=== PATIENT | female | born 1950 | race Caucasian/White ===

== ENCOUNTER 2018-08-05 20:27 | Inpatient (IN) | payer BC ==
[~2018-08-05 20:27] MED LIST: ENOXAPARIN 100 MG/ML SYR SQ SCH
[2018-08-05] MEDS ORDERED: METOPROLOL TARTRATE 5 MG/5 ML INJ IV ONE ×2 (21:47→22:52)
[2018-08-05] MEDS ORDERED: ENOXAPARIN 80 MG/0.8 ML SQ ONE (21:47)
[2018-08-05] MEDS ORDERED: MIDAZOLAM HCL 2 MG/2 ML INJ ONE (22:10)
[2018-08-05] MEDS ORDERED: FENTANYL CITR 100 MCG/2 ML ONE (22:10)
[2018-08-05] MEDS ORDERED: ETOMIDATE 20 MG/10 ML VIAL IV ONE (22:10)
[2018-08-05 22:15] LABS: Absolute Lymphocytes (CBC) 1.8 K/uL (0.7-4.9); Absolute Monocytes 0.8 K/uL (0.1-1.3); Absolute Neutrophil 7.5 K/uL (1.8-8.0); Basophils % 0.7 % (0-1.3); Hematocrit 44.5 % (36.0-45.0); Lymphocytes % 17.5 % (15.3-44.8); MPV 10.1 fL (7.6-11.3); Monocytes % 8.2 % (3.3-12.3); RBC Red Blood Cell Count 4.95 M/uL (3.86-4.86)
[2018-08-05 22:20] LABS: Protime INR 1.03
[2018-08-05] MEDS ORDERED: NA CHLORIDE 0.9% 500 ML ONE (22:22)
[2018-08-05] MEDS ORDERED: ONDANSETRON 4 MG/2 ML VIAL ONE (22:33)
[2018-08-05 22:37] LABS: ALT/SGPT 26 U/L (12-78); AST/SGOT 21 U/L (15-37); Albumin 3.6 g/dL (3.4-5.0); Alkaline Phosphatase 94 U/L (45-117); BUN Blood Urea Nitrogen 10 mg/dL (7-18); Bicarbonate 24 mmol/L (21-32); Bilirubin Direct 0.1 mg/dL (0-0.2); Bilirubin Total 0.5 mg/dL (0.2-1.0); Glucose Level 105 mg/dL (74-106); Magnesium 2.3 mg/dL (1.8-2.4); NT PRO-BNP 1293 pg/mL (<125); Potassium 4.1 mmol/L (3.5-5.1); Protein, Total 7.6 g/dL (6.4-8.2); Sodium Level 139 mmol/L (136-145); Troponin (Emerg Dept Use Only) < 0.02 ng/mL (0.0-0.045)
--- NOTE | 2018-08-05 22:49 | EDPHYS ---
Physician Documentation [facility] Name: Marlen Zheng Age: 68 yrs Sex: Female : 1950 Arrival Date: 08/05/2018 Time: 20:29 Bed 2 Private MD: Thor Dennis T ED Physician Buddy Schmitz HPI: 08/05 22:05 This 68 yrs old Female presents to ER via Ambulatory with complaints of jr8 Dizziness, Nausea. 22:05 The patient presents with dizziness, feeling faint, lightheadedness. Onset: The jr8 symptoms/episode began/occurred acutely, today. Context: occurred at home, occurred while the patient was at rest. Modifying factors: The symptoms are alleviated by nothing, the symptoms are aggravated by standing up. Associated signs and symptoms: Pertinent positives: shortness of breath. Severity of symptoms: At their worst the symptoms were moderate in the emergency department the symptoms are unchanged. Patient's baseline: Neuro: alert and fully oriented, Motor: no deficits, Ambulation: walks without assistance, Speech: normal. The patient has not experienced similar symptoms in the past. The patient has not recently seen a physician. Historical: - Allergies: 20:35 No Known Allergies; aj - Home Meds: 20:35 None [Active]; aj - PMHx: 20:35 Vertigo; aj - PSHx: 20:35 None; aj - Immunization history:: Adult Immunizations up to date. - Social history:: Smoking status: Patient/guardian denies using tobacco. - Ebola Screening: : Patient negative for fever greater than or equal to 101.5 degrees Fahrenheit, and additional compatible Ebola Virus Disease symptoms Patient denies exposure to infectious person Patient denies travel to an Ebola-affected area in the 21 days before illness onset No symptoms or risks identified at this time. ROS: 22:05 Eyes: Negative for injury, pain, redness, and discharge, ENT: Negative for injury, jr8 pain, and discharge, Neck: Negative for injury, pain, and swelling, Cardiovascular: Negative for chest pain, palpitations, and edema, Abdomen/GI: Negative for abdominal pain, nausea, vomiting, diarrhea, and constipation, Back: Negative for injury and pain, MS/Extremity: Negative for injury and deformity, Skin: Negative for injury, rash, and discoloration. 22:05 Respiratory: Positive for shortness of breath. 22:05 Neuro: Positive for dizziness, Negative for altered mental status, gait disturbance, headache, hearing loss, loss of consciousness, numbness, seizure activity, speech changes, syncope, near syncope, tingling, tinnitus, tremor, visual changes, weakness. Exam: 22:05 Eyes: Pupils equal round and reactive to light, extra-ocular motions intact. Lids and jr8 lashes normal. Conjunctiva and sclera are non-icteric and not injected. Cornea within normal limits. Periorbital areas with no swelling, redness, or edema. ENT: Nares patent. No nasal discharge, no septal abnormalities noted. Tympanic membranes are normal and external auditory canals are clear. Oropharynx with no redness, swelling, or masses, exudates, or evidence of obstruction, uvula midline. Mucous membranes moist. Neck: Trachea midline, no thyromegaly or masses palpated, and no cervical lymphadenopathy. Supple, full range of motion without nuchal rigidity, or vertebral point tenderness. No Meningismus. Respiratory: Lungs have equal breath sounds bilaterally, clear to auscultation and percussion. No rales, rhonchi or wheezes noted. No increased work of breathing, no retractions or nasal flaring. Abdomen/GI: Soft, non-tender, with normal bowel sounds. No distension or tympany. No guarding or rebound. No evidence of tenderness throughout. Back: No spinal tenderness. No costovertebral tenderness. Full range of motion. Skin: Warm, dry with normal turgor. Normal color with no rashes, no lesions, and no evidence of cellulitis. MS/ Extremity: Pulses equal, no cyanosis. Neurovascular intact. Full, normal range of motion. Neuro: Awake and alert, GCS 15, oriented to person, place, time, and situation. Cranial nerves II-XII grossly intact. Motor strength 5/5 in all extremities. Sensory grossly intact. Cerebellar exam normal. Normal gait. 22:05 Cardiovascular: Rate: tachycardic, Rhythm: irregularly irregular, Pulses: Pulses are 2+ in right radial artery and left radial artery. Heart sounds: normal, normal S1and S2, no S3 or S4, no murmur, no rub, no gallop, Edema: is not appreciated, JVD: is not appreciated. Vital Signs: 20:35 BP 185 / 94; Pulse 68; Resp 20; Temp 98.1; Pulse Ox 98% on R/A; Weight 83.46 kg; Height aj 5 ft. 4 in. (162.56 cm); 21:40 BP 157 / 107; Pulse 134; Resp 18; Pulse Ox 98% on R/A; tl2 22:15 BP 146 / 97; Pulse 128; Resp 18; Pulse Ox 96% on R/A; tl2 22:27 Pulse 67; Resp 18; Pulse Ox 100% on Non-rebreather mask; tl2 22:30 BP 109 / 78; Pulse 134; Resp 18; Pulse Ox 100% on Non-rebreather mask; tl2 22:33 BP 124 / 80; Pulse 136; Resp 18; Pulse Ox 98% on 3 lpm NC; tl2 23:02 BP 110 / 76; Pulse 114; Resp 18; Pulse Ox 98% on 3 lpm NC; tl2 23:30 BP 118 / 78; Pulse 120; Resp 18; Pulse Ox 97% on 3 lpm NC; tl2 08/06 00:04 BP 110 / 74; Pulse 118; Resp 15; Pulse Ox 96% on 2 lpm NC; tl2 00:31 BP 125 / 70; Pulse 114; Resp 18; Pulse Ox 98% on 2 lpm NC; tl2 08/05 20:35 Body Mass Index 31.58 (83.46 kg, 162.56 cm) aj Procedures: 08/05 22:45 Cardioversion: (synchronized) using pacer pads, for treatment of A fib, with 200 joules jr8 X 2. Post procedure rhythm is sinus rhythm, the patient tolerated the procedure well, . Moderate sedation: Pre-procedure assessment: the patient has been NPO 5 hour(s) prior to arrival, ASA physical classification: I - healthy, no underlying organic disease, Monitoring during procedure: compliance monitor, continuous pulse oximetry, nurse at bedside at all times, Medications employed: Fentanyl, 75 mcg(s), Versed, 2 mg(s), Post-procedure assessment: the patient is deeply sedated, Agee sedation score: 6 - no response, Respiratory status: requires supplemental oxygen to maintain acceptable oxygen saturation, a reversal agent was not used. MDM: 21:21 Patient medically screened. jr8 22:07 ED course: Patient stated that symptoms started acutely today with dizziness. Denies jr8 having problems yesterday or day before that. Explained to her that we only have a 48 hour window to electrically cardiovert. Otherwise we need to wait and anticoagulate and rate control if she felt that the symptoms started greater then 48 hours ago due to increased stroke risk from dislodging clot. Patient sure that it started today. Is ok with cardioversion and signed consents understanding risks vs. benefits . 22:45 Data reviewed: vital signs, nurses notes, lab test result(s), EKG, radiologic studies, [facility] plain films. Data interpreted: Pulse oximetry: on room air is 98 %. Interpretation: normal. Counseling: I had a detailed discussion with the patient and/or guardian regarding: the historical points, exam findings, and any diagnostic results supporting the discharge/admit diagnosis, lab results, radiology results, the need for further work-up and treatment in the hospital. ED course: Patient successfully cardioverted for a few minutes but went back into atrial fibrillation. Will rate control and admit at this point for cardiology evaluation . 08/05 21:21 Order name: Basic Metabolic Panel [facility] 08/05 21:21 Order name: CBC with Diff [facility] 08/05 21:21 Order name: LFT's [facility] 08/05 21:21 Order name: Magnesium [facility] 08/05 21:21 Order name: NT PRO-BNP [facility] 08/05 21:21 Order name: PT-INR [facility] 08/05 21:21 Order name: Troponin (emerg Dept Use Only) [facility] 08/05 22:18 Order name: CBC with Automated Diff; Complete Time: 22:40 EDMS 08/05 22:23 Order name: Protime (+INR); Complete Time: 22:40 EDMS 08/05 22:38 Order name: Basic Metabolic Panel; Complete Time: 23:09 EDMS 08/05 22:38 Order name: Liver (Hepatic) Function; Complete Time: 23:09 EDMS 08/05 22:38 Order name: Troponin (Emerg Dept Use Only); Complete Time: 23:09 EDMS 08/05 22:38 Order name: NT PRO-BNP; Complete Time: 23:09 EDMS 08/05 22:38 Order name: Magnesium; Complete Time: 23:09 EDMS 08/05 21:21 Order name: XRAY Chest (1 view) [facility] 08/05 21:21 Order name: EKG; Complete Time: 21:28 [facility] 08/05 21:21 Order name: Cardiac monitoring; Complete Time: 21:24 08/05 21:21 Order name: EKG - Nurse/Tech; Complete Time: :08/05 22:40 Order name: TS 08/05 22:40 Order name: TSH [facility] 08/05 22:40 Order name: T4 Free [facility] 08/05 23:05 Order name: T4 Free; Complete Time: 23: EDFL 08/05 23:05 Order name: Thyroid Stimulating Hormone; Complete Time: 23: EDFL 08/05 21:21 Order name: IV Saline Lock; Complete Time: : [facility] 08/05 21:21 Order name: Labs collected and sent; Complete Time: : [facility] 08/05 21:21 Order name: O2 Per Protocol; Complete Time: : [facility] 08/05 21:21 Order name: O2 Sat Monitoring; Complete Time: : [facility] 08/05 21:31 Order name: Conscious Sedation; Complete Time: 22:43 [facility] Administered Medications: 21:42 Drug: Lovenox 1 mg/kg Route: Sub-Q; Site: left lower abdomen; ea 22:00 Follow up: Response: No adverse reaction tl2 21:52 Drug: Metoprolol 5 mg Route: IVP; Site: right antecubital; tl2 08/06 00:59 Follow up: Response: No adverse reaction; No adverse reaction, rate decreased tl2 08/05 22:22 Drug: NS 0.9% 500 ml Route: IV; Rate: bolus; Site: right antecubital; tl2 23:00 Follow up: IV Status: Completed infusion; IV Intake: 500ml tl2 22:23 Drug: Zofran 4 mg Route: IVP; Site: right antecubital; tl2 22:30 Follow up: Response: No adverse reaction tl2 22:24 Drug: fentaNYL (PF) 75 mcg Route: IVP; Site: right antecubital; tl2 22:30 Follow up: Response: No adverse reaction; Pain is decreased tl2 22:25 Drug: Versed 2 mg Route: IVP; Site: right antecubital; tl2 22:30 Follow up: Response: No adverse reaction; Patient is sedated tl2 23:00 Drug: Lopressor 5 mg {Note: BP 110/76 HR 137.} Route: IVP; Site: right antecubital; tl2 23:20 Follow up: Response: No adverse reaction tl2 Disposition: 08/05/18 22:48 Hospitalization ordered by Marlena Sterling for Inpatient Admission. Preliminary diagnosis is Atrial fibrillation and flutter - with RVR. - Bed requested for Telemetry/MedSurg (Inpatient). - Status is Inpatient Admission. tl2 - Condition is Stable. - Problem is new. - Symptoms are unchanged. UTI on Admission? No Signatures: Dispatcher [employer] EDMS Veronica Hearn RN Regi Higuera RN Uche Kuo PA PA jr8 Shelley Dukes RN ZOHRA tl2 Helen Eller RN ZOHRA portillo Corrections: (The following items were deleted from the chart) 23:33 22:48 Hospitalization Ordered by Marlena Sterling MD for Inpatient Admission. Preliminary diagnosis is Atrial fibrillation and flutter - with RVR. Bed requested for Telemetry/MedSurg (Inpatient). Status is Inpatient Admission. Condition is Stable. Problem is new. Symptoms are unchanged. UTI on Admission? No. jr8 08/06 01:01 08/05 23:33 08/05/2018 22:48 Hospitalization Ordered by Marlena Sterling MD for Inpatient tl2 Admission. Preliminary diagnosis is Atrial fibrillation and flutter - with RVR. Bed requested for Telemetry/MedSurg (Inpatient). Status is Inpatient Admission. Condition is Stable. Problem is new. Symptoms are unchanged. UTI on Admission? No. mw
--- NOTE | 2018-08-05 22:49 | ER ---
Nurse's Notes [facility] Name: Marlen Zheng Age: 68 yrs Sex: Female : 1950 Arrival Date: 08/05/2018 Time: 20:29 Bed 2 Private MD: Thor Dennis T Diagnosis: Atrial fibrillation and flutter-with RVR Presentation: 08/05 20:34 Presenting complaint: Patient states: Reports dizziness and nausea that started today. aj Worse with movement. Transition of care: patient was not received from another setting of care. Onset of symptoms was August 05, 2018. Risk Assessment: Do you want to hurt yourself or someone else? Patient reports no desire to harm self or others. Initial Sepsis Screen: Does the patient meet any 2 criteria? No. Patient's initial sepsis screen is negative. Does the patient have a suspected source of infection? No. Patient's initial sepsis screen is negative. Care prior to arrival: None. 20:34 Method Of Arrival: Ambulatory aj 20:34 Acuity: TRICIA 3 aj Triage Assessment: 20:35 General: Appears in no apparent distress. comfortable, Behavior is calm, cooperative, aj appropriate for age. Pain: Denies pain. Neuro: Level of Consciousness is awake, alert, obeys commands, Oriented to person, place, time, situation, Appropriate for age Reports dizziness. Respiratory: Airway is patent Respiratory effort is even, unlabored, Respiratory pattern is regular, symmetrical. GI: Reports nausea. Derm: Skin is intact, is healthy with good turgor, Skin is pink, warm \T\ dry. normal. Historical: - Allergies: 20:35 No Known Allergies; aj - Home Meds: 20:35 None [Active]; aj - PMHx: 20:35 Vertigo; aj - PSHx: 20:35 None; aj - Immunization history:: Adult Immunizations up to date. - Social history:: Smoking status: Patient/guardian denies using tobacco. - Ebola Screening: : Patient negative for fever greater than or equal to 101.5 degrees Fahrenheit, and additional compatible Ebola Virus Disease symptoms Patient denies exposure to infectious person Patient denies travel to an Ebola-affected area in the 21 days before illness onset No symptoms or risks identified at this time. Screenin:25 Abuse screen: Denies threats or abuse. Nutritional screening: No deficits noted. ea Tuberculosis screening: No symptoms or risk factors identified. Fall Risk IV access (20 points). Assessment: 21:15 General: Appears in no apparent distress. uncomfortable, Behavior is calm, cooperative, tl2 appropriate for age. Pain: Denies pain. Neuro: Level of Consciousness is awake, alert, obeys commands, Oriented to person, place, time, situation, Reports dizziness, lightheadedness . Cardiovascular: Denies chest pain, palpitations, shortness of breath. Respiratory: Airway is patent Respiratory effort is even, unlabored, Respiratory pattern is regular, symmetrical. GI: Reports nausea. Derm: Skin is pink, warm \T\ dry. 22:20 Reassessment: pt prepared for cardioversion, PA notified. tl2 22:30 Reassessment: Patient appears in no apparent distress at this time. Patient and/or tl2 family updated on plan of care and expected duration. Pain level reassessed. Patient is alert, oriented x 3, equal unlabored respirations, skin warm/dry/pink. 23:30 Reassessment: Patient appears in no apparent distress at this time. Patient and/or tl2 family updated on plan of care and expected duration. Pain level reassessed. Patient is alert, oriented x 3, equal unlabored respirations, skin warm/dry/pink. 08/06 00:30 Reassessment: Patient appears in no apparent distress at this time. Patient and/or tl2 family updated on plan of care and expected duration. Pain level reassessed. Patient is alert, oriented x 3, equal unlabored respirations, skin warm/dry/pink. pt stable and ready for transport to floor. Vital Signs: 08/05 20:35 BP 185 / 94; Pulse 68; Resp 20; Temp 98.1; Pulse Ox 98% on R/A; Weight 83.46 kg; Height aj 5 ft. 4 in. (162.56 cm); 21:40 BP 157 / 107; Pulse 134; Resp 18; Pulse Ox 98% on R/A; tl2 22:15 BP 146 / 97; Pulse 128; Resp 18; Pulse Ox 96% on R/A; tl2 22:27 Pulse 67; Resp 18; Pulse Ox 100% on Non-rebreather mask; tl2 22:30 BP 109 / 78; Pulse 134; Resp 18; Pulse Ox 100% on Non-rebreather mask; tl2 22:33 BP 124 / 80; Pulse 136; Resp 18; Pulse Ox 98% on 3 lpm NC; tl2 23:02 BP 110 / 76; Pulse 114; Resp 18; Pulse Ox 98% on 3 lpm NC; tl2 23:30 BP 118 / 78; Pulse 120; Resp 18; Pulse Ox 97% on 3 lpm NC; tl2 08/06 00:04 BP 110 / 74; Pulse 118; Resp 15; Pulse Ox 96% on 2 lpm NC; tl2 00:31 BP 125 / 70; Pulse 114; Resp 18; Pulse Ox 98% on 2 lpm NC; tl2 08/05 20:35 Body Mass Index 31.58 (83.46 kg, 162.56 cm) aj Vitals: 08/05 22:27 Cardiac Rhythm Assessment Sinus rhythm. tl2 ED Course: 20:29 Patient arrived in ED. am2 20:30 Thor Dennis MD is Private Physician. am2 20:35 Triage completed. aj 20:35 Arm band placed on left wrist. Patient placed in waiting room, Patient notified of wait aj time. 21:21 Uche Alvarenga PA is PHCP. jr8 21:21 Buddy Schmitz MD is Attending Physician. jr8 21:24 Inserted saline lock: 20 gauge in right antecubital area, using aseptic technique. ea Blood collected. 21:25 Patient has correct armband on for positive identification. Bed in low position. Call ea light in reach. Side rails up X 1. 22:47 Marlena Sterling MD is Hospitalizing Provider. jr8 23:00 Shelley Dukes RN is Primary Nurse. tl2 08/06 00:31 No provider procedures requiring assistance completed. Patient admitted, IV remains in tl2 place. Administered Medications: 08/05 21:42 Drug: Lovenox 1 mg/kg Route: Sub-Q; Site: left lower abdomen; ea 22:00 Follow up: Response: No adverse reaction tl2 21:52 Drug: Metoprolol 5 mg Route: IVP; Site: right antecubital; tl2 08/06 00:59 Follow up: Response: No adverse reaction; No adverse reaction, rate decreased tl2 08/05 22:22 Drug: NS 0.9% 500 ml Route: IV; Rate: bolus; Site: right antecubital; tl2 23:00 Follow up: IV Status: Completed infusion; IV Intake: 500ml tl2 22:23 Drug: Zofran 4 mg Route: IVP; Site: right antecubital; tl2 22:30 Follow up: Response: No adverse reaction tl2 22:24 Drug: fentaNYL (PF) 75 mcg Route: IVP; Site: right antecubital; tl2 22:30 Follow up: Response: No adverse reaction; Pain is decreased tl2 22:25 Drug: Versed 2 mg Route: IVP; Site: right antecubital; tl2 22:30 Follow up: Response: No adverse reaction; Patient is sedated tl2 23:00 Drug: Lopressor 5 mg {Note: BP 110/76 HR 137.} Route: IVP; Site: right antecubital; tl2 23:20 Follow up: Response: No adverse reaction tl2 Intake: 23:00 IV: 500ml; Total: 500ml. tl2 Outcome: 22:48 Decision to Hospitalize by Provider. jr8 08/06 00:31 Admitted to Tele accompanied by nurse, family with patient, via stretcher, room 416, tl2 with chart, Report called to ZOHRA Ramos Condition: stable Discharge instructions given to patient, family, Instructed on the need for admit. 01:01 Patient left the ED. tl2 Signatures: Regi Landry RN RN aj Roszak, Josh, PA PA jr8 Shelley Dukes RN RN tl2 Regi Sotomayor Elena, RN RN ea
[2018-08-05] MEDS ORDERED: ALPRAZOLAM 0.25 MG TABLET PO PRN (23:26)
[2018-08-05] MEDS ORDERED: MORPHINE 4 MG/ML SYR IV PRN (23:26)
[2018-08-06] MEDS ORDERED: ENOXAPARIN 80 MG/0.8 ML SQ SCH (01:00)
[2018-08-06] MEDS: ONDANSETRON 4 MG/2 ML VIAL IV PRN ×2 (01:03→07:28)
[2018-08-06 04:32] LABS: Urine Appearance CLEAR; Urine Bilirubin NEGATIVE (NEG); Urine Blood NEGATIVE (NEG); Urine Color YELLOW; Urine Glucose NEGATIVE (NEG); Urine Protein NEGATIVE (NEG); Urine Specific Gravity 1.015 (1.005-1.030); Urine Urobilinogen 0.2 mg/dL (0.2-1.0); Urine pH 6.5 (5.0-7.0)
[2018-08-06 04:36] LABS: Urine Microscopic Reflex ORDER UMIC
[2018-08-06 04:41] LABS: Absolute Lymphocytes (CBC) 2.2 K/uL (0.7-4.9); Absolute Monocytes 0.7 K/uL (0.1-1.3); Basophils % 0.9 % (0-1.3); Eosinophils % 1.5 % (0-4.4); Hematocrit 42.9 % (36.0-45.0); Lymphocytes % 24.2 % (15.3-44.8); Monocytes % 7.7 % (3.3-12.3); RBC Red Blood Cell Count 4.67 M/uL (3.86-4.86)
[2018-08-06 05:00] LABS: ALT/SGPT 24 U/L (12-78); AST/SGOT 15 U/L (15-37); Albumin 3.1 g/dL (3.4-5.0); Alkaline Phosphatase 81 U/L (45-117); BUN Blood Urea Nitrogen 11 mg/dL (7-18); Bicarbonate 28 mmol/L (21-32); Bilirubin Total 0.6 mg/dL (0.2-1.0); Glucose Level 94 mg/dL (74-106); HDL Cholesterol 55 mg/dL (40-60); LDL Cholesterol, Calculated 111 (<130); Magnesium 2.2 mg/dL (1.8-2.4); NT PRO-BNP 1299 pg/mL (<125); Phosphorus 3.3 mg/dL (2.5-4.9); Potassium 4.7 mmol/L (3.5-5.1); Protein, Total 6.6 g/dL (6.4-8.2); Sodium Level 142 mmol/L (136-145); Troponin I < 0.02 ng/mL (0.0-0.045)
[2018-08-06 05:08] LABS: Urine Bacteria <20 /HPF (<20); Urine Culture Reflex Order REFLEXED; Urine RBC <5 /HPF (NONE SEEN)
[2018-08-06] MEDS: ACETAMINOPHEN 500 MG TAB PO PRN ×2 (07:29→20:00)
--- NOTE | 2018-08-06 07:51 | P.HP ---
Certification for Inpatient Patient admitted to: Inpatient With expected LOS: >2 Midnights Patient will require the following post-hospital care: None Practitioner: I am a practitioner with admitting privileges, knowledge of patient current condition, hospital course, and medical plan of care. Services: Services provided to patient in accordance with Admission requirements found in Title 42 Section 412.3 of the Code of Federal Regulations Patient History Date of Service: 08/06/18 Reason for admission: Atrial fibrillation with rapid ventricular response History of Present Illness: Patient is a 68-year-old female came to the hospital with atrial fibrillation with rapid ventricular response. Patient was having dizziness and nausea and vomiting at home. She also felt lightheaded. The symptoms have been going on for the last couple weeks but were much more severe today. In the ER she was told she had atrial fibrillation. She was given IV Lopressor and her symptoms were improving. However, she remains in atrial fibrillation. Will continue with anti coagulation as well. Cardiology consultation and echocardiogram. Will also check thyroid studies as well. Allergies No Known Allergies Allergy (Verified 08/05/18 23:44) Home Medications: NK [No Home Meds] 08/06/18 - Past Medical/Surgical History Has patient received pneumonia vaccine in the past: No Diabetic: No -: veritgo Past Surgical History: Patient denies surgical history - Family History Father Family History: Reviewed- Non-Contributory - Social History Smoking Status: Never smoker Alcohol use: No Place of Residence: Home Review of Systems 10-point ROS is otherwise unremarkable Physical Examination - Vital Signs Temperature: 97.9 F Blood Pressure: 110/70 Pulse: 101 Respirations: 18 Pulse Ox (%): 97 - Physical Exam General: Alert, In no apparent distress, Oriented x3 HEENT: Atraumatic, PERRLA, Mucous membr. moist/pink, EOMI, Sclerae nonicteric Neck: Supple, 2+ carotid pulse no bruit, No LAD, Without JVD or thyroid abnormality Respiratory: Clear to auscultation bilaterally, Normal air movement Cardiovascular: Normal S1 S2, No murmurs, Irregular heart rate/rhythm Gastrointestinal: Normal bowel sounds, Soft and benign, Non-distended, No tenderness Musculoskeletal: No clubbing, No swelling, No tenderness Integumentary: No rashes Neurological: Normal gait, Normal speech, Normal strength at 5/5 x4 extr, Normal tone, Sensation intact, Cranial nerves 3-12 intact, Normal affect Lymphatics: No axilla or inguinal lymphadenopathy - Studies Laboratory Data (last 24 hrs) 08/05/18 22:00: PT 12.1, INR 1.03 08/05/18 22:00: WBC 10.4, Hgb 14.9, Hct 44.5, Plt Count 312 08/05/18 22:00: Sodium 139, Potassium 4.1, BUN 10, Creatinine 0.69, Glucose 105 , Magnesium 2.3, Total Bilirubin 0.5, AST 21, ALT 26, Alkaline Phosphatase 94 Assessment & Plan - Problems (Diagnosis) (1) Atrial fibrillation with rapid ventricular response Current Visit: Yes Status: Acute (2) Near syncope Current Visit: Yes Status: Acute - Plan 1. Serial troponins and EKG 2. Cardiology consultation 3. Echocardiogram 4. Beta-peri and anti coagulation 5. Check electrolytes and thyroid studies 6. GI and DVT prophylaxis Discharge Plan: Home Plan to discharge in: Greater than 2 days - Advance Directives Does patient have a Living Will: No Does patient have a Durable POA for Healthcare: No - Code Status/Comfort Care Code Status Assessed: Yes Code Status: Full Code Critical Care: No Time Spent Managing PTS Care (In Minutes): 45
--- NOTE | 2018-08-06 08:20 | RAD REPORT ---
EXAM DESCRIPTION: Luann Single View08/05/2018 10:03 pm CLINICAL HISTORY: Shortness breath COMPARISON: none FINDINGS: Artifact overlies the right chest. The lungs appear clear of acute infiltrate. The heart is normal size IMPRESSION: No acute abnormalities displayed
[2018-08-06] MEDS ORDERED: METOPROLOL TAR 50 MG TAB PO SCH (09:00)
[2018-08-06] MEDS: ENOXAPARIN 80 MG/0.8 ML SQ SCH ×2 (09:23→20:00)
[2018-08-06] MEDS ORDERED: SOTALOL HCL 80 MG TAB PO ONE (11:23)
--- NOTE | 2018-08-06 11:45 | EKG ---
Test Date: 2018-08-05 Test Time: 21:21:26 Business Services Representative: HINA MEASUREMENT RESULTS: Intervals: Rate: 160 GA: QRSD: 74 QT: 280 QTc: 456 [place]: P: GA: QRS: 71 T: 40 INTERPRETIVE STATEMENTS: Atrial fibrillation with rapid ventricular response Nonspecific ST abnormality Abnormal ECG Compared to ECG 02/23/2004 02:54:00 ST (T wave) deviation now present Sinus bradycardia no longer present Electronically Signed On 08-06-18 11:42:57 COOK MANAGER by Ugo Mahoney
--- NOTE | 2018-08-06 17:09 | EKG ---
Test Date: 2018-08-06 Test Time: 15:19:59 Swimming Professor: ROCK MEASUREMENT RESULTS: Intervals: Rate: 56 MO: 152 QRSD: 78 QT: 482 QTc: 465 [place]: P: 57 MO: 152 QRS: 67 T: 51 INTERPRETIVE STATEMENTS: Sinus bradycardia Biatrial enlargement Abnormal ECG Compared to ECG 08/05/2018 21:21:26 Atrial abnormality now present Atrial fibrillation no longer present ST (T wave) deviation no longer present Electronically Signed On 08-06-18 17:08:07 EMBOSSING MACHINE TENDER by Ugo Mahoney
--- NOTE | 2018-08-06 17:46 | ECHO ---
HEIGHT: 5 ft 4 in WEIGHT: 185 lb 0 oz DATE OF STUDY: 08/06/[address]: Marlena Sterling MD 2-DIMENSIONAL: YES M.MODE: YES DOPPLER: YES COLOR FLOW: YES TDS: PORTABLE: DEFINITY: BUBBLE STUDY: DIAGNOSIS: NEW ONSET ATRIAL FIBRILLATION. CARDIAC HISTORY: CATHERIZATION: NO SURGERY: NO PROSTHETIC VALVE: NO PACEMAKER: NO MEASUREMENTS (cm) DIASTOLIC (NORMALS) SYSTOLIC (NORMALS) IVSd 1.1 (0.6-1.2) LA Diam 2.8 (1.9-4.0) LVEF 51% LVIDd 3.7 (3.5-5.7) LVIDs 2.7 (2.0-3.5) %FS 25% LVPWd 1.1 (0.6-1.2) Ao Diam 2.5 (2.0-3.7) 2 DIMENSIONAL ASSESSMENT: RIGHT ATRIUM: NORMAL LEFT ATRIUM: NORMAL RIGHT VENTRICLE: NORMAL LEFT VENTRICLE: NORMAL TRICUSPID VALVE: NORMAL MITRAL VALVE: NORMAL PULMONIC VALVE: NORMAL AORTIC VALVE: NORMAL PERICARDIAL EFFUSION: NONE AORTIC ROOT: NORMAL LEFT VENTRICULAR WALL MOTION: NORMAL DOPPLER/COLOR FLOW: MILD TRICUSPID REGURGITATION AND MITRAL REGURGITATION. COMMENTS: MILD MITRAL REGURGITATION AND TRICUSPID REGURGITATION. NORMAL LEFT VENTRICULAR SIZE AND FUNCTION. NO THROMBUS. ATRIAL FIBRILLATION. NORMAL LEFT ATRIUM SIZE. TECHNOLOGIST: MARGY BLANDON
[2018-08-06] MEDS: SOTALOL HCL 80 MG TAB PO SCH (18:00)
[2018-08-06] MEDS: ATORVASTATIN 20 MG TAB PO SCH (20:00)
[2018-08-07] MEDS: SOTALOL HCL 80 MG TAB PO SCH ×2 (06:40→17:16)
--- NOTE | 2018-08-07 07:11 | CON ---
Date of Consultation: 08/06/[address] Day's service with atrial fibrillation that is new onset. I saw the patient on . The patient was admitted on 08/06/2018. History Of Present Illness: Ms. Zheng is a 68-year-old woman who has been very healthy. She came in with few days of nausea, dizziness, was found to have atrial fibrillation and is new onset. By th e time I saw her, she had already been placed on beta blockers and Lovenox. She was also placed on s tatin. Ms. Zheng denied any syncope or chest pain. She denies PND, orthopnea, or pedal edema. Past Medical History: Includes vertigo. Allergies: NONE. Review of Systems: Negative. Social History: Negative. Family History: Negative. Medications: At home are none. Physical Examination: Vital Signs: Stable. She was afebrile. She was in atrial fibrillation at a rate of 100. HEENT: Negative. Neck: Supple with no bruit. Chest: Clear to auscultation and percussion. Cardiac: Revealed atrial fibrillation. No murmurs, gallops, or rubs. Abdomen: Benign. Extremities: Revealed no clubbing, cyanosis, or edema. Diagnostic Data: Chest x-ray was negative. EKG showed atrial fibrillation. Troponin was negative. BNP was 1299. Impression And Plan: New onset atrial fibrillation, unknown duration at least 48 hours. We will try chemical cardioversion with Betapace 80 mg 1 p.o. b.i.d. We will hold on metoprolol. We will nikolay nue her Lovenox anticoagulant. There is an echocardiogram that is pending. TSH is normal . She will need to receive at least 3 dosages of Betapace before discharge. If she converts, that w ould be good. If she does not convert, then I will plan to do an electric cardioversion in the next 2 to 4 weeks. I will have her do an outpatient stress test sometime in the near future. JASON/BLAKE Voice ID: [id number] Report ID: [id number]
--- NOTE | 2018-08-07 07:50 | PN ---
Date of Progress Note: 08/07/2018 Ms. Zheng was admitted yesterday with new onset atrial fibrillation, dizziness, and nausea. She wa s placed on Betapace 80 mg 1 p.o. b.i.d. She had received 2 dosages yesterday and then she converted to sinus rhythm. Today, she is asymptomatic, is in sinus rhythm. Echocardiogram that was done yest erday was normal. I still would recommend that she gets on Betapace, anticoagulant of Dr. Day's ch oiramos, Xarelto or Eliquis. I will make arrangements to see her in the office for an outpatient stress test and follow up. JASON/BLAKE Voice ID: [id number] Report ID: [id number]
[2018-08-07] MEDS: ENOXAPARIN 80 MG/0.8 ML SQ SCH ×2 (08:08→20:34)
--- NOTE | 2018-08-07 18:44 | PN ---
Date of Progress Note: 08/07/2018 Subjective: The patient is seen and examined. Chart reviewed, and case discussed with RN. The oscar ent is now back in sinus rhythm after cardioversion, overall doing well. No chest pain. No shortnes s of breath or palpitations. Medications: List reviewed. Code Status: Full. Physical Examination: Vital Signs: Temperature 97.9, heart rate 60, blood pressure 138/62, respirations 20, O2 of 96% on r oom air. General: Awake, alert, oriented x3, not in any acute distress. An elderly female, obese. CV: S1, S2. Regular rate and rhythm. Peripheral pulses present bilaterally. Respiratory: Clear to auscultation bilaterally. No wheezing or stridor. Gastrointestinal: Abdomen is soft, nontender, nondistended. Positive bowel sounds. Extremities: No clubbing, cyanosis, or edema. Neuro: Cranial nerves 2 through 12 intact grossly. No focal neurological deficit. Speech is normal . Laboratory Data: Sodium pending. Urine culture pending. Echocardiogram shows EF 51%. Assessment: A 68-year-old female with: 1.New onset of atrial fibrillation with rapid ventricular rate, status post cardioversion, now back in sinus rhythm. Continue sotalol. The patient is on Lovenox 1 mg/kg for anticoagulation. We will switch to oral anticoagulation upon discharge. Appreciate Cardiology input. Echo shows EF of 51%. 2.Obesity, BMI 31. 3.Near syncopal episode, resolved, secondary to atrial fibrillation with rapid ventricular rate. 4.Gastrointestinal and deep venous thrombosis prophylaxis addressed. Plan: We will continue to monitor closely on sotalol. We will discharge once cleared by Cardiology. /BLAKE Voice ID: [id number] Report ID: [id number]
[2018-08-07] MEDS: ATORVASTATIN 20 MG TAB PO SCH (20:35)
[2018-08-08] MEDS: SOTALOL HCL 80 MG TAB PO SCH (05:44)
[2018-08-08] MEDS: ENOXAPARIN 80 MG/0.8 ML SQ SCH (09:19)
--- NOTE | 2018-08-09 03:35 | DS ---
Date of Discharge: 08/08/2018 Mission Assessment Specialist: Dr. Mahoney, Cardiology. Admitting Diagnoses: 1.Atrial fibrillation with rapid ventricular response, new onset. 2.Near-syncope. Discharge Diagnoses: 1.New-onset atrial fibrillation with rapid ventricular response, now back in sinus rhythm. 2.Obesity, body mass index 31. 3.Near-syncopal episode, resolved. Hospital Course: The patient is a 68-year-old female with no past medical history, comes in with pal pitations, dizziness, nausea, and near-syncopal episode. The patient was found to be in atrial fibri llation with rapid ventricular response. She was given IV Lopressor for rate control. The patient w as started on Lovenox. Cardiology was consulted. Her workup was negative including troponin levels. Cholesterol panel was normal. TSH was 2.5. Free T4 was also normal. Electrolytes were within nor mal limits. The patient was then switched over to sotalol. The patient did have asymptomatic bacter iuria. However, her cultures did not show any growth. The patient was seen by Cardiology. Echocard iogram was done, which showed EF of 51%, with mild mitral regurgitation and tricuspid regurgitation. There was no thrombus found. The patient tolerated sotalol well without any side effects. The oscar ent was then switched over to oral anticoagulants and remained in sinus rhythm. The patient was then discharged home in a stable condition. Activity: As tolerated. Medications: As per medication reconciliation list. Followup: Follow up with primary care physician in 2 to 3 days. Follow up with criminal lawyer, Dr. Rito sapp, in 2 weeks for outpatient stress test. Return to ER for worsening condition. Diet: Heart healthy. Physical Examination: General: Awake, alert, oriented x3, no acute distress. CV: S1, S2. No murmurs. Regular rate and rhythm. Respiratory: Moving air well bilaterally. No wheezing. Gastrointestinal: Abdomen is soft, nontender, nondistended. Positive bowel sounds. Extremities: No clubbing, cyanosis, or edema. Neurologic: Nonfocal. Total time spent discharging the patient was 37 minutes. SA/MODL Voice ID: [id number] Report ID: [id number]
== END 2018-08-08 13:45 | disposition home or self-care (01) | DRG 310 ==
LOC: ER 20:27 → 4TH 08-06 00:04
PROVIDERS: ADMIT Hospitalist; ATTEND Family Medicine
DX: I48.91 Unspecified atrial fibrillation (principal); R55 Syncope and collapse; E66.9 Obesity, unspecified; Z68.31 Body mass index [BMI] 31.0-31.9, adult; I08.1 Rheumatic disorders of both mitral and tricuspid valves
CPT/HCPCS: 36415; 71045; 80048; 80053; 80061; 80076; 81003; 81015; 83735; 83880; 84100; 84439; 84443; 84484; 85025; 85610; 86850; 86900; 86901; 87077; 87086; 87088; 87186; 93005; 93306; J1650; J2250; J2405; J3010

== ENCOUNTER 2024-10-15 10:52 | Inpatient (IN) | payer BC, OTHER ==
[2024-10-15] MEDS ORDERED: APIXABAN 5 MG TABLET ONE (11:06)
[2024-10-15] MEDS ORDERED: FAMOTIDINE 20 MG/2 ML VIAL IV ONE (11:07)
[2024-10-15] MEDS ORDERED: SOTALOL HCL 80 MG TAB ONE (11:07)
[2024-10-15] MEDS ORDERED: METOPROLOL TARTRATE 5 MG/5 ML INJ IV ONE (11:07)
[2024-10-15] MEDS ORDERED: NA CHLORIDE 0.9% 1,000 ML ONE (11:07)
[2024-10-15 11:14] LABS: Absolute Basophils 0.1 K/uL (0-0.5); Absolute Eosinophils 0.1 K/uL (0-0.5); Absolute Lymphocytes (CBC) 1.9 K/uL (0.7-4.9); Absolute Monocytes 0.9 K/uL (0.1-1.3); Absolute Neutrophil 5.9 K/uL (1.8-8.0); Basophils % 0.8 % (0-1.3); Eosinophils % 1.5 % (0-4.4); Hematocrit 43.4 % (36.0-45.0); Hemoglobin 14.5 g/dL (12.0-15.0); Lymphocytes % 21.2 % (15.3-44.8); MCH 30.9 pg (27.0-35.0); MCHC 33.4 g/dL (32.0-36.0); MCV 92.3 fL (80-100); MPV 11.3 fL (7.6-11.3); Neutrophils % 66.5 % (41.7-73.7); Nucleated Red Blood Cells % 0.1 % (0-0); Platelets 226 thou/uL (152-406); RBC Red Blood Cell Count 4.71 M/uL (3.86-4.86); Red Cell Distribution Width 13.6 % (12.1-15.2)
[2024-10-15 11:20] LABS: PT Prothrombin Time 12.1 SECONDS (10-13.0); Protime INR 1.06
[2024-10-15 11:40] LABS: Albumin 3.6 g/dL (3.4-5.0); Bilirubin Direct 0.3 mg/dL (0-0.2); Bilirubin Indirect, Calculated 1.1 mg/dL (0.2-0.8); Bilirubin Total 1.4 mg/dL (0.2-1.0); Globulin 3.7 g/dL (2.3-3.5); Protein, Total 7.3 g/dL (6.4-8.2); Troponin High Sensitivity 39.5 pg/mL (<58.9)
[2024-10-15 11:41] LABS: Magnesium 2.2 mg/dL (1.6-2.4); Thyroid Stimulating Hormone 4.01 uIU/mL (0.358-3.740)
[2024-10-15] MEDS ORDERED: RIVAROXABAN 20 MG TABLET PO ONE (11:46)
--- NOTE | 2024-10-15 11:46 | RAD REPORT ---
EXAMINATION: ONE VIEW CHEST XR CLINICAL INDICATION: Female, 74 years old.,COUGH TECHNIQUE: Frontal chest projection is submitted. Examination is limited by patient positioning and t echnique. COMPARISON: 08/05/2018 FINDINGS: Right more than left perihilar streaky and hazy opacification centrally, and mild left basilar atelec tasis. No pneumothorax or sizable effusion. The heart is normal in size. Mediastinal contours are unremarkable. IMPRESSION: The right more than left perihilar streaky and hazy opacification centrally, could reflect an infecti ous/inflammatory process either involving the airways or central parenchyma.
--- NOTE | 2024-10-15 13:18 | EDPHYS ---
Physician Documentation [facility] Name: Marlen Zheng Age: 74 yrs Sex: Female : 1950 Arrival Date: 10/15/2024 Time: 10:52 Bed 2 Private MD: MARIA T Physician Emeka Smith HPI: 10/15 13:09 This 74 yrs old Female presents to ER via Ambulatory with complaints of sent kenji by Raslan. 13:09 The patient has shortness of breath at rest. Onset: The symptoms/episode began/occurred kenji 1 day(s) ago. Duration: The symptoms are continuous, and are steadily getting worse. The patient's shortness of breath is aggravated by nothing, is alleviated by nothing. The patient presents with a history of irregular heart beat, heart racing. Context: The symptoms occur at rest. Onset: The symptoms/episode began/occurred today, yesterday. Modifying factors: The symptoms are aggravated by nothing. The symptoms are alleviated by nothing. Severity of symptoms: At their worst the symptoms were moderate in the emergency department the symptoms are unchanged. Historical: - Allergies: 11:01 No Known Allergies; cm10 - Home Meds: 11:01 Sotalol Oral [Active]; Lisinopril Oral [Active]; Xarelto oral [Active]; cm10 - PMHx: 11:01 Vertigo; Atrial fibrillation; Hypertensive disorder; cm10 - Immunization history:: Adult Immunizations unknown. - Infectious Disease History:: Denies. - Social history:: Smoking status: unknown. - Family history:: not pertinent. ROS: 13:09 Constitutional: Negative for fever, chills, and weight loss, Eyes: Negative for injury, kenji pain, redness, and discharge, ENT: Negative for injury, pain, and discharge, Neck: Negative for injury, pain, and swelling, Respiratory: Negative for shortness of breath, cough, wheezing, and pleuritic chest pain, Abdomen/GI: Negative for abdominal pain, nausea, vomiting, diarrhea, and constipation, Back: Negative for injury and pain, : Negative for injury, bleeding, discharge, and swelling, MS/Extremity: Negative for injury and deformity, Skin: Negative for injury, rash, and discoloration, Neuro: Negative for headache, weakness, numbness, tingling, and seizure, Psych: Negative for depression, anxiety, suicide ideation, homicidal ideation, and hallucinations, Allergy/Immunology: Negative for hives, rash, and allergies, Endocrine: Negative for neck swelling, polydipsia, polyuria, polyphagia, and marked weight changes, Hematologic/Lymphatic: Negative for swollen nodes, abnormal bleeding, and unusual bruising, 13:09 Cardiovascular: Positive for chest pain, palpitations, Exam: 13:09 Constitutional: This is a well developed, well nourished patient who is awake, alert, kenji and in no acute distress. Head/Face: Normocephalic, atraumatic. Eyes: Pupils equal round and reactive to light, extra-ocular motions intact. Lids and lashes normal. Conjunctiva and sclera are non-icteric and not injected. Cornea within normal limits. Periorbital areas with no swelling, redness, or edema. ENT: Nares patent. No nasal discharge, no septal abnormalities noted. Tympanic membranes are normal and external auditory canals are clear. Oropharynx with no redness, swelling, or masses, exudates, or evidence of obstruction, uvula midline. Mucous membranes moist. Neck: Trachea midline, no thyromegaly or masses palpated, and no cervical lymphadenopathy. Supple, full range of motion without nuchal rigidity, or vertebral point tenderness. No Meningismus. Chest/axilla: Normal chest wall appearance and motion. Nontender with no deformity. No lesions are appreciated. Respiratory: Lungs have equal breath sounds bilaterally, clear to auscultation and percussion. No rales, rhonchi or wheezes noted. No increased work of breathing, no retractions or nasal flaring. Abdomen/GI: Soft, non-tender, with normal bowel sounds. No distension or tympany. No guarding or rebound. No evidence of tenderness throughout. Back: No spinal tenderness. No costovertebral tenderness. Full range of motion. Skin: Warm, dry with normal turgor. Normal color with no rashes, no lesions, and no evidence of cellulitis. MS/ Extremity: Pulses equal, no cyanosis. Neurovascular intact. Full, normal range of motion., bilateral aka Neuro: Awake and alert, GCS 15, oriented to person, place, time, and situation. Cranial nerves II-XII grossly intact. Motor strength 5/5 in all extremities. Sensory grossly intact. Cerebellar exam normal. Normal gait. Psych: Awake, alert, with orientation to person, place and time. Behavior, mood, and affect are within normal limits. 13:09 Cardiovascular: Rate: tachycardic, actual rate is 159 bpm, Rhythm: irregularly irregular, Pulses: Pulses are 4+ in bilateral radial, brachial, femoral, popliteal, posterior tibial and and dorsalis pedis arteries.. Heart sounds: normal, Edema: is not appreciated, JVD: is not appreciated, 13:17 ECG was reviewed by the Attending Physician. [facility] 14:46 ECG was reviewed by the Attending Physician. [facility] Vital Signs: 11:03 BP 155 / 99; Pulse 165; Resp 20; Temp 97.7(O); Pulse Ox 93% on R/A; Weight 97.07 kg cm10 (R); Height 5 ft. 4 in. (R); Pain 0/10; 11:28 BP 133 / 100; Pulse 136; Resp 20; Pulse Ox 97% on R/A; iw 11:30 BP 120 / 83; Pulse 137; Resp 20; Pulse Ox 98% on R/A; iw 11:43 Pulse 127; iw 13:07 BP 107 / 69; Pulse 106; Resp 28; Pulse Ox 98% ; bp 14:00 BP 103 / 71; Pulse 112; Resp 22; Pulse Ox 98% ; me1 15:00 BP 107 / 75; Pulse 117; Resp 22; Pulse Ox 94% ; me1 16:00 BP 107 / 84; Pulse 109; Resp 20; Pulse Ox 94% ; me1 17:00 BP 114 / 83; Pulse 114; Resp 20; Pulse Ox 94% ; me1 18:00 BP 131 / 93; Pulse 113; Resp 21; Pulse Ox 94% ; me1 21:12 BP 141 / 89; Pulse 102; Resp 22; Pulse Ox 95% on R/A; kd3 11:03 Body Mass Index 36.73 (97.07 kg, 162.56 cm) cm10 11:03 Pain Scale: Adult cm10 MDM: 10:56 Medical Screening Exam initiated [facility] 13:13 Differential diagnosis: Anemia Anxiety Reaction Bronchitis CHF exacerbation, arrythmia, kenji dehydration, Myocardial Infarction pneumonia, Pneumothorax Psychogenic pulmonary edema, Pulmonary Embolism reactive airway disease, Unstable Angina. Immunization status: Pneumococcal vaccine: within last 5 years. Influenza vaccine: Data reviewed: vital signs, nurses notes, lab test result(s), CBC, electrolytes, EKG, radiologic studies, plain films. Consideration of Admission/Observation Patient was admitted/placed on observation. Escalation of care including admission/observation considered. I considered the following discharge prescriptions or medication management in the emergency department Medications were administered in the Emergency Department. See MAR. Independent interpretation of the following test(s) in the Emergency Department EKG: See my EKG interpretation above. Test considered but Not performed: CT: no ct chest. Historians other than the Patient: pt well informed. 10/15 10:57 Order name: Basic Metabolic Panel; Complete Time: 11:57 [facility] 10/15 10:57 Order name: CBC with Diff; Complete Time: 11:57 [facility] 10/15 10:57 Order name: LFT's; Complete Time: 11:57 [facility] 10/15 10:57 Order name: Magnesium; Complete Time: 11:57 [facility] 10/15 10:57 Order name: NT PRO-BNP; Complete Time: 11:57 kenji 10/15 10:57 Order name: PT-INR; Complete Time: 11:57 [facility] 10/15 10:57 Order name: Troponin HS; Complete Time: 11:57 [facility] 10/15 10:57 Order name: Lipase; Complete Time: 11:57 [facility] 10/15 10:57 Order name: TSH; Complete Time: 11:57 [facility] 10/15 11:45 Order name: T4 Free; Complete Time: 11:57 [facility] 10/15 10:57 Order name: XRAY Chest (1 view); Complete Time: 11:57 kenji 10/15 13:15 Order name: Echo w/ Doppler kenji 10/15 14:56 Order name: CONS Physician Consult; Complete Time: 18:33 [facility] 10/15 10:57 Order name: Cardiac monitoring; Complete Time: 11: kenji 10/15 10:57 Order name: EKG - Nurse/Tech; Complete Time: 11:00 kenji 10/15 10:57 Order name: IV Saline Lock; Complete Time: 11:05 kenji 10/15 10:57 Order name: Labs collected and sent; Complete Time: 11:05 kenji 10/15 10:57 Order name: O2 Per Protocol; Complete Time: 11: kenji 10/15 10:57 Order name: O2 Sat Monitoring; Complete Time: 11: kenji 10/15 13:18 Order name: EKG - Nurse/Tech; Complete Time: 14:24 kenji EC:17 Rate is 159 beats/min. Rhythm is irregularly irregular. QRS [place] is Normal. [place] interval kenji is normal. QRS interval is normal. No Q waves. T waves are Normal. No ST changes noted. Clinical impression: Atrial Fibrillation. Interpreted by me. Reviewed by me. 14:46 Rate is 119 beats/min. Rhythm is irregularly irregular. QRS [place] is Normal. [place] interval kenji is normal. QRS interval is normal. QT interval is normal. No Q waves. T waves are Normal. No ST changes noted. Clinical impression: Atrial Fibrillation and No evidence of ischemia. Interpreted by me. Reviewed by me. Administered Medications: 11:14 Not Given (Duplicate Order): eliquis5 mg PO once kenji 11:20 Drug: Metoprolol IVP 5 mg IVP once; Hold for SBP <100 or HR <60. Route: IVP; Site: left iw antecubital; 14:25 Follow up: Response: No adverse reaction me1 11:23 Drug: Sotalol PO 80 mg PO once Route: PO; iw 14:24 Follow up: Response: No adverse reaction me1 11:23 Drug: Famotidine IVP 20 mg IVP once; dilute with 10 mL 0.9% NaCl; give over 2 minutes iw Route: IVP; Site: left antecubital; 14:24 Follow up: Response: No adverse reaction me1 11:24 Drug: Metoprolol IVP 5 mg IVP once; Hold for SBP <100 or HR <60. Route: IVP; Site: left iw antecubital; 14:25 Follow up: Response: No adverse reaction me1 11:28 Drug: NS 0.9% IV 500 ml 500 ml IV at 1 bolus once; to be given as a bolus over 30 iw minutes Volume: 500 ml; Route: IV; Rate: 1 bolus; Site: left antecubital; 12:50 Follow up: IV Status: Completed infusion me1 11:49 Drug: Xarelto PO 20 mg PO once Route: PO; iw 14:24 Follow up: Response: No adverse reaction me1 12:50 Drug: NS 0.9% IV 500 ml 500 ml IV at 125 ml/hr once Volume: 500 ml; Route: IV; Rate: me1 125 ml/hr; Site: left antecubital; 14:25 Follow up: IV Status: Infusion continued upon admission me1 16:39 Drug: Furosemide IVP 20 mg IVP once; give over 2 minutes Route: IVP; Site: left me1 antecubital; 18:33 Follow up: Response: No adverse reaction me1 16:39 Drug: Tussionex Pennkinetic ER PO Suspension 5 ml PO once Route: PO; me1 18:33 Follow up: Response: No adverse reaction me1 Disposition Summary: 10/15/24 13:17 Hospitalization Ordered Notes: Hospitalization Status: Inpatient Admission kenji Provider: Marlena Sterling cha Condition: Fair kenji Problem: new kenji Symptoms: have improved kenji Bed/Room Type: Standard kenji Location: Telemetry/MedSurg (observation)(10/15/24 19:42) rv1 Room Assignment: 223(10/15/24 19:42) rv1 Diagnosis - Persistent atrial fibrillation - with RVR kenji Forms: - Medication Reconciliation Form kenji - SBAR form kenji - Leadership Thank You Letter kenji Signatures: Dispatcher [employer] EDMS Emeka Smith MD MD cha Williams, Irene, RN RN iw Nazia Gonzalez RN RN jl7 Carito Whittingtno rv1 Marimar Jain RN RN cm10 Alice Esquivel RN RN me1 Corrections: (The following items were deleted from the chart) 10:58 10:58 BASIC METABOLIC PANEL+C.LAB.BRZ ordered. EDMS EDMS 10:58 10:58 CBC+H.LAB.BRZ ordered. EDMS EDMS 10:58 10:58 HEPATIC FUNCTION+C.LAB.BRZ ordered. EDMS EDMS 10:58 10:58 MAGNESIUM+C.LAB.BRZ ordered. EDMS EDMS 10:58 10:58 PROBNP+C.LAB.BRZ ordered. EDMS EDMS 10:58 10:58 PROTIME (+INR)+COAG.LAB.BRZ ordered. EDMS EDMS 10:58 10:58 Troponin High Sensitivity+C.LAB.BRZ ordered. EDMS EDMS 10:58 10:58 LIPASE+C.LAB.BRZ ordered. EDMS EDMS 10:58 10:58 THYROID STIMULAT HORMONE+C.LAB.BRZ ordered. EDMS EDMS 10:58 10:58 Chest Single View+RAD.RAD.BRZ ordered. EDMS EDMS 14:38 13:17 Telemetry/MedSurg (Inpatient) kenji jl7 14:38 13:17 kenji jl7 14:38 14:38 HLD2 jl7 jl7 19:42 14:38 [facility] ER HOLD jl7 rv1 19:42 14:38 ERHOLD- jl7 rv1
--- NOTE | 2024-10-15 13:18 | ER ---
Nurse's Notes [facility] Name: Marlen Zheng Age: 74 yrs Sex: Female : 1950 Arrival Date: 10/15/2024 Time: 10:52 Bed 2 Private MD: Diagnosis: Persistent atrial fibrillation-with RVR Presentation: 10/15 11:03 Chief complaint: Patient states: SENT TO ER BY [employer] DUE TO BEING IN A-FIB. PT cm10 REPORTS PALPITATIONS AND SHORTNESS OF BREATH. PT STATES THAT SHE IS SUPPOSED TO TAKE SOTALOL, LISINOPRIL AND XARELTO AND HAS NOT BEEN TAKING IT. Coronavirus screen: Client denies travel out of the [place] in the last 14 days. Ebola Screen: Patient denies travel to an Ebola-affected area in the 21 days before illness onset. Initial Sepsis Screen: Does the patient meet any 2 criteria? HR > 90 bpm. Does the patient have a suspected source of infection? No. Patient's initial sepsis screen is negative. Risk Assessment: Do you want to hurt yourself or someone else? Patient reports no desire to harm self or others. Onset of symptoms was October 15, 2024. 11:03 Method Of Arrival: Ambulatory cm10 11:03 Acuity: TRICIA 2 cm10 Triage Assessment: 11:03 General: Appears uncomfortable, Behavior is calm, cooperative. Pain: Denies pain. cm10 Neuro: No deficits noted. Level of Consciousness is awake, alert, obeys commands, Oriented to person, place, time, situation, Appropriate for age. Historical: - Allergies: 11: No Known Allergies; cm10 - Home Meds: 11: Sotalol Oral [Active]; Lisinopril Oral [Active]; Xarelto oral [Active]; cm10 - PMHx: 11: Vertigo; Atrial fibrillation; Hypertensive disorder; cm10 - Immunization history:: Adult Immunizations unknown. - Infectious Disease History:: Denies. - Social history:: Smoking status: unknown. - Family history:: not pertinent. Screenin:[facility] ED Fall Risk Assessment (Adult) History of falling in the last 3 months, iw including since admission No falls in past 3 months (0 pts) Confusion or Disorientation No (0 pts) Intoxicated or Sedated No (0 pts) Impaired Gait No (0 pts) Mobility Assist Device Used No (0 pt) Altered Elimination No (0 pt) Score/Fall Risk Level 0 - 2 = Low Risk Oriented to surroundings, Maintained a safe environment. Abuse screen: Denies threats or abuse. Nutritional screening: No deficits noted. Tuberculosis screening: No symptoms or risk factors identified. Assessment: 11:28 General: Appears in no apparent distress. Behavior is calm, cooperative. Pain: Denies iw pain. Neuro: Level of Consciousness is awake, alert, obeys commands, Oriented to person, place, time, situation, Moves all extremities. Full function. Cardiovascular: Reports lightheadedness, palpitations, shortness of breath, Rhythm is atrial fibrillation with rapid ventricular response. Respiratory: Reports shortness of breath at rest on exertion Respiratory effort is even, unlabored, Respiratory pattern is regular. Derm: Skin is intact, is fragile. Musculoskeletal: Range of motion: intact in all extremities. 12:14 General: Appears in no apparent distress. obese, well groomed, well developed, Behavior me1 is calm, cooperative, appropriate for age. Pain: Denies pain. Neuro: Level of Consciousness is awake, alert, obeys commands, Oriented to person, place, time, situation, Appropriate for age. Cardiovascular: Reports palpitations. Respiratory: Reports shortness of breath on exertion Airway is patent Respiratory effort is even, unlabored, Respiratory pattern is regular, symmetrical. GI: No signs and/or symptoms were reported involving the gastrointestinal system. : No signs and/or symptoms were reported regarding the genitourinary system. EENT: No signs and/or symptoms were reported regarding the EENT system. Derm: Skin is intact, is healthy with good turgor, Skin is pink, warm \T\ dry. Musculoskeletal: No signs and/or symptoms reported regarding the musculoskeletal system. 13:07 Reassessment: No changes from previously documented assessment. Patient is alert, bp oriented x 3, equal unlabored respirations, skin warm/dry/pink. Vital Signs: 11:03 BP 155 / 99; Pulse 165; Resp 20; Temp 97.7(O); Pulse Ox 93% on R/A; Weight 97.07 kg cm10 (R); Height 5 ft. 4 in. (R); Pain 0/10; 11:28 BP 133 / 100; Pulse 136; Resp 20; Pulse Ox 97% on R/A; iw 11:30 BP 120 / 83; Pulse 137; Resp 20; Pulse Ox 98% on R/A; iw 11:43 Pulse 127; iw 13:07 BP 107 / 69; Pulse 106; Resp 28; Pulse Ox 98% ; bp 14:00 BP 103 / 71; Pulse 112; Resp 22; Pulse Ox 98% ; me1 15:00 BP 107 / 75; Pulse 117; Resp 22; Pulse Ox 94% ; me1 16:00 BP 107 / 84; Pulse 109; Resp 20; Pulse Ox 94% ; me1 17:00 BP 114 / 83; Pulse 114; Resp 20; Pulse Ox 94% ; me1 18:00 BP 131 / 93; Pulse 113; Resp 21; Pulse Ox 94% ; me1 21:12 BP 141 / 89; Pulse 102; Resp 22; Pulse Ox 95% on R/A; kd3 11:03 Body Mass Index 36.73 (97.07 kg, 162.56 cm) cm10 11:03 Pain Scale: Adult cm10 ED Course: 10:54 Patient arrived in ED. jl7 10:56 Emeka Smith MD is Attending Physician. kenji 10:59 Ketty Vivas, RN is Primary Nurse. iw 11:01 EKG done, by ED staff, reviewed by Emeka Smith MD. cm10 11:01 Arm band placed on right wrist. Patient placed in an exam room, on a stretcher. Patient cm10 placed on traffic monitor specialist, on pulse oximetry. EKG completed in triage. Results shown to MD. 11:05 Triage completed. cm10 11:05 TSH Sent. bc6 11:05 Lipase Sent. bc6 11:05 Basic Metabolic Panel Sent. bc6 11:05 CBC with Diff Sent. bc6 11:05 LFT's Sent. bc6 11:05 Magnesium Sent. bc6 11:05 NT PRO-BNP Sent. bc6 11:05 PT-INR Sent. bc6 11:05 Troponin HS Sent. bc6 11:05 Initial lab(s) drawn, by ms, sent to lab. Inserted saline lock: 20 gauge in left bc6 antecubital area, using aseptic technique. Blood collected. Flushed with 10 mL NS. 11:15 XRAY Chest (1 view) In Process Unspecified. EDMS 11:31 Patient has correct armband on for positive identification. Client placed on continuous iw cardiac and pulse oximetry monitoring. NIBP monitoring applied. library monitor on. 12:05 Provided Education on:. me1 13:17 Marlena Sterling MD is Hospitalizing Provider. kenji 14:45 Patient admitted, IV remains in place. me1 18:27 No provider procedures requiring assistance completed. me1 19:32 Primary Nurse role handed off by Ketty Vivas, RN rv1 19:50 Rose Hui, ZOHRA is Primary Nurse. kd3 Administered Medications: 11:14 Not Given (Duplicate Order): eliquis5 mg PO once kenji 11:20 Drug: Metoprolol IVP 5 mg IVP once; Hold for SBP <100 or HR <60. Route: IVP; Site: left iw antecubital; 14:25 Follow up: Response: No adverse reaction me1 11:23 Drug: Sotalol PO 80 mg PO once Route: PO; iw 14:24 Follow up: Response: No adverse reaction me1 11:23 Drug: Famotidine IVP 20 mg IVP once; dilute with 10 mL 0.9% NaCl; give over 2 minutes iw Route: IVP; Site: left antecubital; 14:24 Follow up: Response: No adverse reaction me1 11:24 Drug: Metoprolol IVP 5 mg IVP once; Hold for SBP <100 or HR <60. Route: IVP; Site: left iw antecubital; 14:25 Follow up: Response: No adverse reaction me1 11:28 Drug: NS 0.9% IV 500 ml 500 ml IV at 1 bolus once; to be given as a bolus over 30 iw minutes Volume: 500 ml; Route: IV; Rate: 1 bolus; Site: left antecubital; 12:50 Follow up: IV Status: Completed infusion me1 11:49 Drug: Xarelto PO 20 mg PO once Route: PO; iw 14:24 Follow up: Response: No adverse reaction me1 12:50 Drug: NS 0.9% IV 500 ml 500 ml IV at 125 ml/hr once Volume: 500 ml; Route: IV; Rate: me1 125 ml/hr; Site: left antecubital; 14:25 Follow up: IV Status: Infusion continued upon admission me1 16:39 Drug: Furosemide IVP 20 mg IVP once; give over 2 minutes Route: IVP; Site: left ms1 antecubital; 18:33 Follow up: Response: No adverse reaction me1 16:39 Drug: Tussionex Pennkinetic ER PO Suspension 5 ml PO once Route: PO; me1 18:33 Follow up: Response: No adverse reaction me1 Medication: 18:27 VIS not applicable for this client. me1 Outcome: 13:17 Decision to Hospitalize by Provider. kenji 14:45 Admitted to ER Hold. Please see [facility] for further documentation. me1 14:45 Condition: stable 14:45 Instructed on the need for admit, 21:13 Patient left the ED. kd3 Signatures: Dispatcher [employer] EDEmeka Yo MD MD cha Williams, Irene, RN RN iw Leal, Jahala, RN RN jl7 Lawson Lara RN RN bp Doucette, Kyli, RN RN kd3 Carito Whittington rv1 Ruthie Lainez Clarissa, RN RN cm10 Alice Esquivel RN RN me1
--- NOTE | 2024-10-15 14:51 | P.HP ---
Certification for Inpatient Patient admitted to: Observation With expected LOS: <2 Midnights <Liliana Mon - Last Filed: 10/16/24 06:36> Patient History Date of Service: 10/16/24 Reason for admission: Palpitation History of Present Illness: 74-year-old female with a past medical history of atrial fibrillation presents to the emergency room for A-fib after being referred by cardiology. She reports palpitations, that are getting progressively worse, shortness of breath started about a month ago is getting progressively worse. He reports shortness of breath is worse with exertion, she reports intermittent dizziness. She denies chest pain, abdominal pain, nausea, fever or recent infection. Plan to admit for A-fib RVR with cardiology to consult - Past Medical/Surgical History Diabetic: No -: veritgo -: hypertension -: atrial fibrillation -: vag delivery -: tubal - Social History Smoking Status: Never smoker Alcohol use: No CD- Drugs: No Place of Residence: Home <Liliana Mon - Last Filed: 10/16/24 06:36> Date of Service: 10/15/24 <Marlena Sterling - Last Filed: 10/24/24 13:37> Allergies No Known Allergies Allergy (Verified 08/05/18 23:44) Home Medications: Diltiazem Tab [Cardizem Tab*] 60 mg PO Q8HR 30 Days #90 tab 10/17/24 Rivaroxaban [Xarelto*] 20 mg PO DAILY AT SUPPER 30 Days #30 tab 10/17/24 Sotalol HCl [Betapace*] 80 mg PO BID 6AM 6PM 30 Days #60 tab 10/17/24 Review of Systems 10-point ROS is otherwise unremarkable <Liliana Mon - Last Filed: 10/16/24 06:36> Physical Examination - Physical Exam General: Alert, Oriented x3, Mild distress HEENT: Atraumatic, Normocephalic Neck: Supple Respiratory: Normal air movement, Crackles/rales Cardiovascular: Normal pulses, Irregular heart rate/rhythm Capillary refill: <2 Seconds Gastrointestinal: Normal bowel sounds, Soft and benign Musculoskeletal: No swelling, No contractures Neurological: Normal speech, Normal strength at 5/5 x4 extr - Studies Laboratory Data (last 24 hrs) 10/15/24 10/15/24 10/15/24 11:05 11:05 11:05 WBC 8.80 Hgb 14.5 Hct 43.4 Plt Count 226 PT 12.1 INR 1.06 Sodium 137 Potassium 4.0 BUN 9 Creatinine 1.00 Glucose 111 H Magnesium 2.2 Total Bilirubin 1.4 H AST 21 ALT 22 Alkaline Phosphatase 74 Lipase 27 <Liliana Mon - Last Filed: 10/16/24 06:36> Assessment and Plan - Problems (Diagnosis) (1) Atrial fibrillation with rapid ventricular response Onset Date: 08/07/18 Status: Acute (2) Dyspnea Status: Acute (3) Palpitations Status: Acute (4) Hypertension Status: Acute Qualifiers: Hypertension type: unspecified Qualified Code(s): I10 - Essential (primary) hypertension (5) Vertigo Status: Acute - Plan Assessment Cardiology consulted Referred by cardiology for A-fib RVR ER EKG A-fib rate 159 tele Started on sotolol, xarelto, (refused elqiuis) PRN metrop 02 tirate sats 92-94% Echo ordered lasix, PPI Resume home meds Full code DVT Xarelto (she refused Eliquis) Diet cardiac Disoposition, home independant prior Discharge Plan: Home - Advance Directives Does patient have a Living Will: No Does patient have a Durable POA for Healthcare: No - Code Status/Comfort Care Code Status: Full Code Critical Care: No Time Spent Managing Pts Care (In Minutes): 55 <Liliana Mon - Last Filed: 10/16/24 06:36> Date of Service: 10/15/24 Patient was seen and examined. Events of the last 24 hours have been noted. Spoke with with ANTHONY regarding patient's clinical picture after evaluating and examining the patient independently. I performed a substantial part of the MDM during this patient's care today. I personally made or approved the documented management plan and acknowledge its risk of complications. I agree with the findings and documentation provided in the ANTHONY's notes. <Marlena Sterling - Last Filed: 10/24/24 13:37>
[2024-10-15] MEDS: DIGOXIN 0.25 MG/ML AMP IV ONE (15:45)
[2024-10-15] MEDS ORDERED: DIGOXIN 0.25 MG/ML AMP ONE (15:53)
[2024-10-15] MEDS ORDERED: HYDROCODONE/CHLORPHEN 5 ML/OSYR ONE (16:32)
[2024-10-15] MEDS ORDERED: FUROSEMIDE 20 MG/ 2ML VIAL ONE (16:33)
[2024-10-15 18:36] VITALS: BMI 36.7
[2024-10-15] MEDS: SOTALOL HCL 80 MG TAB PO SCH (21:35)
[2024-10-15] MEDS: APIXABAN 5 MG TABLET PO SCH (21:35)
[2024-10-16] MEDS ORDERED: METOPROLOL TARTRATE 5 MG/5 ML INJ IV PRN (02:52)
[2024-10-16] MEDS: METOPROLOL TARTRATE 5 MG/5 ML INJ IV STA (04:09)
--- NOTE | 2024-10-16 08:14 | P.DS ---
Admission Date: 10/16/24 Discharge Date: 10/17/24 Reason for Admission: Palpitation - Problems (1) Atrial fibrillation with rapid ventricular response Onset Date: 08/07/18 Status: Acute (2) Dyspnea Status: Acute Qualifiers: Dyspnea type: other forms of dyspnea Qualified Code(s): R06.09 - Other forms of dyspnea (3) Palpitations Status: Acute (4) Hypertension Status: Acute Qualifiers: Hypertension type: unspecified Qualified Code(s): I10 - Essential (primary) hypertension (5) Vertigo Status: Acute Brief History of Present Illness: 74-year-old female with a past medical history of atrial fibrillation presents to the emergency room for A-fib after being referred by cardiology. She reports palpitations, that are getting progressively worse, shortness of breath started about a month ago is getting progressively worse. He reports shortness of breath is worse with exertion, she reports intermittent dizziness. She denies chest pain, abdominal pain, nausea, fever or recent infection. Plan to admit for A-fib RVR with cardiology to consult - Physical Exam General: Alert, Oriented x3, afebrile HEENT: Atraumatic, Normocephalic Neck: Supple Respiratory: Normal air movement, unlabored Cardiovascular: Normal pulses, Irregular heart rate/rhythm Capillary refill: <2 Seconds Gastrointestinal: Normal bowel sounds, Soft and benign Musculoskeletal: No swelling, No contractures Neurological: Normal speech, Normal strength at 5/5 x4 extr Hospital Course: 74-year-old female with a past medical history of atrial fibrillation presents to the emergency room for A-fib after being referred by cardiology. She reports palpitations, that are getting progressively worse, shortness of breath started about a month ago is getting progressively worse. He reports shortness of breath is worse with exertion, she reports intermittent dizziness. She denies chest pain, abdominal pain, nausea, fever or recent infection. Plan to admit for A-fib RVR with cardiology to consult Plan for BEAU today by cardiology she failed DCCV back in 2019 and also failed another attempt for BEAU DCCV x3 this admission. Follow-up with cardiology in 1 week Discharge medications Sotalol 80 mg twice daily Diltiazem 60 mg p.o. 3 times daily Xarelto 20 mg daily Follow-up with cardiology for ablation Assessment A-fib RVR started on sotalol Elevated BNP likely secondary to acute heart failure from uncontrolled A-fib Dyspnea likely secondary to pulmonary edema gentle diuretics Hypertension Hyperlipidemia Resume home med Echocardiogram Combined systolic and diastolic dysfunction, EF 50-55, mitral and tricuspid regurgitation, severely dilated left atrium Continue home medicines as previously prescribed GOAL: Clear understanding of disease process INSTRUCTIONS: Physician Discharge Instructions: -Follow-up with PCP in 1 to 2 weeks 1-follow-up with cardiology after discharge -Please call Dr. Sterling at [phone] if any questions regarding hospital stay -Please call nursing station at [phone] if any nursing or medication questions -Return to the emergency room if symptoms worsen Diet: ADA, low sodium Activity: Fall precautions <Liliana Mon - Last Filed: 10/17/24 13:28> Admission Date: 10/16/24 Discharge Date: 10/17/24 Hospital Course: Patient was seen and examined. Events of the last 24 hours have been noted. Spoke with with ANTHONY regarding patient's clinical picture after evaluating and examining the patient independently. I performed a substantial part of the MDM during this patient's care today. I personally made or approved the documented management plan and acknowledge its risk of complications. I agree with the findings and documentation provided in the ANTHONY's notes. <Marlena Sterling - Last Filed: 10/24/24 13:38> Disposition: ROUTINE DISCHARGE Discharge Condition: GOOD Vital Signs/Physical Exam: Temp Pulse Resp BP Pulse Ox 97.4 F 100 H 20 124/72 94 10/16/24 04:00 10/16/24 04:09 10/16/24 04:00 10/16/24 04:09 10/16/24 04:00 Laboratory Data at Discharge: WBC 8.80 thou/uL (4.3-10.9) 10/15/24 11:05 Hgb 14.5 g/dL (12.0-15.0) 10/15/24 11:05 Hct 43.4 % (36.0-45.0) 10/15/24 11:05 Plt Count 226 thou/uL (152-406) 10/15/24 11:05 PT 12.1 SECONDS (10-13.0) 10/15/24 11:05 INR 1.06 10/15/24 11:05 Sodium 137 mEq/L (136-145) 10/15/24 11:05 Potassium 4.0 mEq/L (3.5-5.1) 10/15/24 11:05 BUN 9 mg/dL (7-18) 10/15/24 11:05 Creatinine 1.00 mg/dL (0.55-1.02) 10/15/24 11:05 Glucose 111 mg/dL (74-106) H 10/15/24 11:05 Magnesium 2.2 mg/dL (1.6-2.4) 10/15/24 11:05 Total Bilirubin 1.4 mg/dL (0.2-1.0) H 10/15/24 11:05 AST 21 U/L (15-37) 10/15/24 11:05 ALT 22 U/L (13-56) 10/15/24 11:05 Alkaline Phosphatase 74 U/L (45-117) 10/15/24 11:05 Lipase 27 U/L (13-75) 10/15/24 11:05 <Liliana Mon - Last Filed: 10/17/24 13:28> Vital Signs/Physical Exam: Temp Pulse Resp BP Pulse Ox 97.8 F 99 H 20 135/74 96 10/17/24 16:00 10/17/24 16:00 10/17/24 16:00 10/17/24 16:00 10/17/24 16:00 General: Alert, In no apparent distress, Oriented x3 Laboratory Data at Discharge: WBC 10.10 thou/uL (4.3-10.9) 10/17/24 05:33 Hgb 14.8 g/dL (12.0-15.0) 10/17/24 05:33 Hct 45.6 % (36.0-45.0) H 10/17/24 05:33 Plt Count 230 thou/uL (152-406) 10/17/24 05:33 PT 12.1 SECONDS (10-13.0) 10/15/24 11:05 INR 1.06 10/15/24 11:05 Sodium 139 mEq/L (136-145) 10/17/24 05:33 Potassium 3.8 mEq/L (3.5-5.1) 10/17/24 05:33 BUN 13 mg/dL (7-18) 10/17/24 05:33 Creatinine 0.81 mg/dL (0.55-1.02) 10/17/24 05:33 Glucose 81 mg/dL (74-106) 10/17/24 05:33 Phosphorus 3.9 mg/dL (2.5-4.9) 10/17/24 05:33 Magnesium 2.3 mg/dL (1.6-2.4) 10/17/24 05:33 Total Bilirubin 1.4 mg/dL (0.2-1.0) H 10/17/24 05:33 AST 32 U/L (15-37) 10/17/24 05:33 ALT 35 U/L (13-56) 10/17/24 05:33 Alkaline Phosphatase 69 U/L (45-117) 10/17/24 05:33 Lipase 27 U/L (13-75) 10/15/24 11:05 <Marlena Sterling - Last Filed: 10/24/24 13:38> Diet: AHA Time spent managing pt's care (in minutes): 45 <Liliana Mon - Last Filed: 10/17/24 13:28> Time spent managing pt's care (in minutes): 35 <Marlena Sterling - Last Filed: 10/24/24 13:38> Home Medications: Diltiazem Tab [Cardizem Tab*] 60 mg PO Q8HR 30 Days #90 tab 10/17/24 Rivaroxaban [Xarelto*] 20 mg PO DAILY AT SUPPER 30 Days #30 tab 10/17/24 Sotalol HCl [Betapace*] 80 mg PO BID 6AM 6PM 30 Days #60 tab 10/17/24 New Medications: Sotalol HCl [Betapace*] 80 mg PO BID 6AM 6PM 30 Days #60 tab Diltiazem Tab [Cardizem Tab*] 60 mg PO Q8HR 30 Days #90 tab Rivaroxaban [Xarelto*] 20 mg PO DAILY AT SUPPER 30 Days #30 tab Physician Discharge Instructions: 74-year-old female with a past medical history of atrial fibrillation presents to the emergency room for A-fib after being referred by cardiology. She reports palpitations, that are getting progressively worse, shortness of breath started about a month ago is getting progressively worse. He reports shortness of breath is worse with exertion, she reports intermittent dizziness. She denies chest pain, abdominal pain, nausea, fever or recent infection. Plan to admit for A-fib RVR with cardiology to consult BEAU today by cardiology she failed DCCV back in 2019 and also failed another attempt for BEAU DCCV x3 this admission. Follow-up with cardiology in 1 week Discharge medications Sotalol 80 mg twice daily Diltiazem 60 mg p.o. 3 times daily Xarelto 20 mg daily Follow-up with cardiology for ablation Assessment A-fib RVR started on sotalol Elevated BNP likely secondary to acute heart failure from uncontrolled A-fib Dyspnea likely secondary to pulmonary edema gentle diuretics Hypertension Hyperlipidemia Resume home med Echocardiogram Combined systolic and diastolic dysfunction, EF 50-55, mitral and tricuspid regurgitation, severely dilated left atrium Continue home medicines as previously prescribed GOAL: Clear understanding of disease process INSTRUCTIONS: Physician Discharge Instructions: -Follow-up with PCP in 1 to 2 weeks 1-follow-up with cardiology after discharge -Please call Dr. Sterling at [phone] if any questions regarding hospital stay -Please call nursing station at [phone] if any nursing or medication questions -Return to the emergency room if symptoms worsen Diet: ADA, low sodium Activity: Fall precautions Followup: Winston Bland MD [ACTIVE - CAN ADMIT] - 1-2 Weeks NONE,NONE [Primary Care Provider] -
[2024-10-16] MEDS: FUROSEMIDE 40 MG/4 ML VIAL IV SCH (08:41)
[2024-10-16] MEDS: ASPIRIN EC 81 MG TAB PO SCH (08:41)
--- NOTE | 2024-10-16 09:41 | P.CNS ---
Date of Consult: 10/16/24 Chief Complaint: Palpitation History of Present Illness: Patient with PMH of HTN, AF long standing, heart failure preserved EF, presented with worsening SOB, GAMBOA and palpitations, denies chest pain, no syncope, she has been off her medications since July, denies any other complains. Allergies No Known Allergies Allergy (Verified 08/05/18 23:44) Home medications list reviewed: Yes Home Medications: Apixaban [Eliquis] 5 mg PO BID #60 tablet 08/08/18 Atorvastatin Calcium [Lipitor*] 20 mg PO BEDTIME #30 tab 08/08/18 Sotalol HCl [Betapace*] 80 mg PO BID 6AM 6PM #60 tab 08/08/18 - Past Medical/Surgical History Diabetic: No -: veritgo -: hypertension -: atrial fibrillation -: vag delivery -: tubal - Social History Smoking Status: Unknown if ever smoked Alcohol use: No CD- Drugs: No Place of Residence: Home Review of Systems 10-point ROS is otherwise unremarkable Physical Examination Temp Pulse Resp BP Pulse Ox 97.5 F 101 H 24 H 124/78 95 10/16/24 08:00 10/16/24 08:41 10/16/24 08:00 10/16/24 08:41 10/16/24 08:00 General: Alert, In no apparent distress HEENT: Atraumatic, PERRLA, Mucous membr. moist/pink, EOMI, Sclerae nonicteric Neck: Supple, 2+ carotid pulse no bruit, No LAD, Without JVD or thyroid abnormality Respiratory: Clear to auscultation bilaterally, Normal air movement Cardiovascular: Irregular heart rate/rhythm Gastrointestinal: Normal bowel sounds, No tenderness Musculoskeletal: No tenderness Integumentary: No rashes Neurological: Normal gait, Normal speech, Normal tone, Normal affect Lymphatics: No axilla or inguinal lymphadenopathy Laboratory Data (last 24 hrs) 10/15/24 10/15/24 10/15/24 11:05 11:05 11:05 WBC 8.80 Hgb 14.5 Hct 43.4 Plt Count 226 PT 12.1 INR 1.06 Sodium 137 Potassium 4.0 BUN 9 Creatinine 1.00 Glucose 111 H Magnesium 2.2 Total Bilirubin 1.4 H AST 21 ALT 22 Alkaline Phosphatase 74 Lipase 27 - Problems (1) Dyspnea Current Visit: Yes Status: Acute Plan: get echo continue lasix 40 mg IV BID Monitor input and output and electrolytes. (2) Atrial fibrillation with rapid ventricular response Onset Date: 08/07/18 Current Visit: No Status: Acute Plan: Patient used to be on Sotalol but she has not been taking it since July, also she mention that she failed DCCV back in 2018 continue Sotalol 80 mg po BID(EKG after 3rd dose). continue Xarelto 20 mg daily NPO after midnight for any attmept of BEAU DCCV in am
--- NOTE | 2024-10-16 12:34 | EKG ---
Test Date: 2024-10-15 Test Time: 14:19:33 Loading And Unloading Supervisor: MEASUREMENT RESULTS: Intervals: Rate: 119 DC: QRSD: 76 QT: 404 QTc: 568 [place]: P: DC: QRS: 90 T: 94 INTERPRETIVE STATEMENTS: Atrial fibrillation with rapid ventricular response Rightward axis Nonspecific T wave abnormality Abnormal ECG Compared to ECG 10/15/2024 10:57:10 Right-axis deviation now present T-wave abnormality now present ST (T wave) deviation no longer present Possible ischemia no longer present Electronically Signed On 10-16-24 12:32:35 CDT by Winston Bland
--- NOTE | 2024-10-16 12:36 | EKG ---
Test Date: 2024-10-15 Test Time: 10:57:10 Ladle Patcher: CORBY MEASUREMENT RESULTS: Intervals: Rate: 159 MI: QRSD: 78 QT: 270 QTc: 439 Protection: P: MI: QRS: 85 T: -82 INTERPRETIVE STATEMENTS: Atrial fibrillation with RVR and PVCs ST & T wave abnormality, consider inferior ischemia Abnormal ECG Compared to ECG 08/06/2018 15:19:59 ST (T wave) deviation now present Possible ischemia now present Sinus bradycardia no longer present Atrial abnormality no longer present Electronically Signed On 10-16-24 12:33:23 CDT by Winston Bland
--- NOTE | 2024-10-16 14:34 | ECHO ---
HEIGHT: 5 ft 4 in WEIGHT: 214 lb 0 oz DATE OF STUDY: 10/16/[address]: Emeka Smith MD 2-DIMENSIONAL: YES M.MODE: YES DOPPLER: YES COLOR FLOW: YES TDS: YES PORTABLE: YES DEFINITY: BUBBLE STUDY: DIAGNOSIS: ATRIAL FIBRILLATION CARDIAC HISTORY: CATHERIZATION: NO SURGERY: NO PROSTHETIC VALVE: NO PACEMAKER: NO MEASUREMENTS (cm) DIASTOLIC (NORMALS) SYSTOLIC (NORMALS) IVSd 0.9 (0.6-1.2) LA Diam 2.6 (1.9-4.0) LVEF 50-55% LVIDd 4.9 (3.5-5.7) LVIDs 3.7 (2.0-3.5) %FS 25% LVPWd 1.0 (0.6-1.2) Ao Diam 2.5 (2.0-3.7) 2 DIMENSIONAL ASSESSMENT: RIGHT ATRIUM: NORMAL LEFT ATRIUM: SEVERELY DILATED RIGHT VENTRICLE: NORMAL LEFT VENTRICLE: NORMAL TRICUSPID VALVE: MILD TRICUSPID REGURGITATION MITRAL VALVE: MILD MITRAL REGURGITATION PULMONIC VALVE: NORMAL AORTIC VALVE: NORMAL PERICARDIAL EFFUSION: NONE AORTIC ROOT: NORMAL LEFT VENTRICULAR WALL MOTION: NORMAL DOPPLER/COLOR FLOW: DIASTOLIC DYSFUNCTION COMMENTS: 1. NORMAL LEFT VENTRICULAR SYSTOLIC FUNCTION, EJECTION FRACTION 50-55%, NORMAL WALL MOTION 2. DIASTOLIC DYSFUNCTION 3. SEVERELY DILATED LEFT ATRIUM 4. MILD MITRAL REGURGITATION, MILD TRICUSPID REGURGITATION TECHNOLOGIST: MARGY RICHTER
[2024-10-16] MEDS: RIVAROXABAN 10 MG TABLET PO SCH (17:01)
--- NOTE | 2024-10-17 02:43 | P.PN ---
Subjective Date of Service: 10/16/24 Chief Complaint: Palpitation Atrial fib, started on Sotolol, has not converted, Plan for NPO for BEAU in am <Liliana Mon - Last Filed: 10/17/24 02:39> Date of Service: 10/16/24 <Marlena Sterling - Last Filed: 10/24/24 13:37> Review of Systems 10-point ROS is otherwise unremarkable <ElieserLiliana - Last Filed: 10/17/24 02:39> Physical Examination - Vital Signs Temperature: 97.9 F Blood Pressure: 115/62 Pulse: 117 Respirations: 19 Pulse Ox (%): 95 - Physical Exam General: Alert, In no apparent distress, Oriented x3 HEENT: Atraumatic, Normocephalic Neck: Supple, 2+ carotid pulse no bruit Respiratory: Normal air movement, Diminished Cardiovascular: No edema, Irregular heart rate/rhythm Capillary refill: <2 Seconds Gastrointestinal: Normal bowel sounds, Soft and benign Musculoskeletal: No clubbing, No swelling Integumentary: No breakdown, No significant lesion Neurological: Normal speech, Normal strength at 5/5 x4 extr <AbdielshemarLiliana - Last Filed: 10/17/24 02:39> Assessment And Plan - Current Problems (Diagnosis) (1) Atrial fibrillation with rapid ventricular response Onset Date: 08/07/18 Status: Acute (2) Dyspnea Status: Acute (3) Palpitations Status: Acute (4) Hypertension Status: Acute Qualifiers: Hypertension type: unspecified Qualified Code(s): I10 - Essential (primary) hypertension (5) Vertigo Status: Acute - Plan Assessment Cardiology consulted Referred by cardiology for A-fib RVR ER EKG A-fib rate 159 NPO for BEAU in am tele Started on sotolol, xarelto, (refused elqiuis) PRN metrop 02 tirate sats 92-94% Echo ordered lasix, PPI Resume home meds Full code DVT Xarelto (she refused Eliquis) Diet cardiac Disoposition, home independant prior <ElieserLiliana - Last Filed: 10/17/24 02:39> Date of Service: 10/16/24 Patient was seen and examined. Events of the last 24 hours have been noted. Spoke with with ANTHONY regarding patient's clinical picture after evaluating and examining the patient independently. I performed a substantial part of the MDM during this patient's care today. I personally made or approved the documented management plan and acknowledge its risk of complications. I agree with the findings and documentation provided in the ANTHONY's notes. <Marlena Sterling - Last Filed: 10/24/24 13:37>
[2024-10-17 06:03] LABS: Absolute Basophils 0.1 K/uL (0-0.5); Absolute Eosinophils 0.3 K/uL (0-0.5); Absolute Lymphocytes (CBC) 2.7 K/uL (0.7-4.9); Hematocrit 45.6 % (36.0-45.0); Hemoglobin 14.8 g/dL (12.0-15.0); Lymphocytes % 26.4 % (15.3-44.8); MCH 30.2 pg (27.0-35.0); MCHC 32.3 g/dL (32.0-36.0); MCV 93.5 fL (80-100); MPV 11.2 fL (7.6-11.3); Monocytes % 10.3 % (3.3-12.3); Neutrophils % 59.3 % (41.7-73.7); Nucleated Red Blood Cells % 0.1 % (0-0); Platelets 230 thou/uL (152-406); RBC Red Blood Cell Count 4.88 M/uL (3.86-4.86); Red Cell Distribution Width 13.8 % (12.1-15.2)
[2024-10-17 06:21] LABS: Albumin 3.4 g/dL (3.4-5.0); Albumin/Globulin Ratio 0.9 (1.1-1.8); Anion Gap 8.8 mEq/L (5.0-15.0); Bilirubin Total 1.4 mg/dL (0.2-1.0); Globulin 3.7 g/dL (2.3-3.5); Magnesium 2.3 mg/dL (1.6-2.4); Phosphorus 3.9 mg/dL (2.5-4.9); Potassium 3.8 mEq/L (3.5-5.1); Protein, Total 7.1 g/dL (6.4-8.2)
[2024-10-17] MEDS: NA CHLORIDE 0.9% 500 ML ONE (07:39)
[2024-10-17 08:02] VITALS: O2SAT 97
[2024-10-17] MEDS ORDERED: LIDOCAINE 1% MPF 5 ML VIAL ONE (08:54)
[2024-10-17] MEDS ORDERED: propofoL 200 MG/20 ML VIAL IV ONE (08:54)
[2024-10-17] MEDS ORDERED: METOPROLOL TARTRATE 5 MG/5 ML INJ IV ONE (09:20)
--- NOTE | 2024-10-17 10:17 | P.PN ---
Subjective Date of Service: 10/17/24 Chief Complaint: Palpitation Subjective: No new changes, No C/O voiced, Tolerating diet, Ambulating, Improving Review of Systems 10-point ROS is otherwise unremarkable Physical Examination - Vital Signs Temperature: 97.5 F Blood Pressure: 139/62 Pulse: 119 Respirations: 23 Pulse Ox (%): 95 - Physical Exam General: Alert, In no apparent distress HEENT: Atraumatic, PERRLA, EOMI Neck: Supple, JVD not distended Respiratory: Clear to auscultation bilaterally, Normal air movement Cardiovascular: Irregular heart rate/rhythm Gastrointestinal: Normal bowel sounds, No tenderness Musculoskeletal: No tenderness Integumentary: No rashes Neurological: Normal speech, Normal tone, Normal affect Lymphatics: No axilla or inguinal lymphadenopathy - Studies Medications List Reviewed: Yes Assessment And Plan - Current Problems (Diagnosis) (1) Dyspnea Current Visit: Yes Status: Acute Plan: Echo shows normal LV systolic function, DD, Change lasix to 40 mg daily Monitor input and output and electrolytes. outpatient stress test is recommended Qualifiers: Dyspnea type: other forms of dyspnea Qualified Code(s): R06.09 - Other forms of dyspnea (2) Atrial fibrillation with rapid ventricular response Onset Date: 08/07/18 Current Visit: No Status: Acute Plan: Patient used to be on Sotalol but she has not been taking it since July, also she mention that she failed DCCV back in 2019 and also failed another attempt for BEAU DCCV x3 this admission. continue Sotalol 80 mg po BID. add Diltazem 60 mg po TID continue Xarelto 20 mg daily outpatient follow up with cardiology for referral for EP for ablation.
--- NOTE | 2024-10-17 11:35 | TEE ---
TRANSESOPHAGEAL ECHOCARDIOGRAM REPORT CARDIOLOGY DEPARTMENT DATE OF STUDY: 10/17/2024 HEIGHT: 5'4" WEIGHT: 214 lbs DIAGNOSIS: ATRIAL FIBRILLATION CARPENTER WOODEN TANK ERECTING COMMENTS: BEAU CARDIAC HISTORY: CATHERIZATION: SURGERY: PROSTHETIC VALVE: PACEMAKER: 2 DIMENSIONAL ASSESSMENT: RIGHT ATRIUM: LEFT ATRIUM: RIGHT VENTRICLE: LEFT VENTRICLE: TRICUSPID VALVE: MITRAL VALVE: PULMONIC VALVE: AORTIC VALVE: PERICARDIAL EFFUSION: AORTIC ROOT: EJECTION FRACTION: LEFT VENTRICULAR WALL MOTION: DOPPLER/COLOR FLOW: COMMENTS: 1. NORMAL LEFT VENTRICULAR ATRIAL APPENDAGE, NO THROMBUS 2. FAILED TRANSESOPHAGEAL ECHOCARDIOGRAM DIRECT CURRENT CARDIOVERSION TECHNOLOGIST: MARGY RICHTER
--- NOTE | 2024-10-17 11:39 | OP ---
Date of Procedure: 10/17/2024 Surgeon: Winston Bland Procedure Performed: Synchronized BEAU cardioversion. Indication For Procedure: Atrial fibrillation. Complications: None. Estimated Blood Loss: None. Sedation: Done by Anesthesia Team. Description Of Procedure: After risks, benefits, and alternatives were explained to the patient, the patient agreed to proceed with procedure and signed informed consent. The patient was brought back to the OR. Time-out was performed. Sedation was administered by Anesthesia Team. Next, the BEAU pro be was inserted. Images were obtained and then BEAU probe out. Synchronized cardioversion was attemp crys x3 with 250, 300, and 350 joules. The patient did not convert into sinus shortly, but converting back into atrial fibrillation again. So, procedure was aborted. The patient was moved to recovery in stable condition. Assessment/plan: Atrial fibrillation, status post failed BEAU cardioversion x3. Plan is to continue sotalol 80 mg p.o. b.i.d. Start diltiazem 60 mg p.o. t.i.d. Continue Xarelto 20 mg daily. We will refer as an outpatient for EP for atrial fibrillation ablation. REBEKA Voice ID: [id number] Report ID: [id number]
[2024-10-17 12:24] VITALS: TEMP 97.8
[2024-10-17] MEDS: DILTIAZEM HCL 60 MG TAB PO ONE (14:21)
[2024-10-17 16:09] VITALS: BP 135/74
--- NOTE | 2024-10-18 13:26 | EKG ---
Test Date: 2024-10-17 Test Time: 09:26:49 Reel Man: IDRIS MEASUREMENT RESULTS: Intervals: Rate: 96 PA: QRSD: 80 QT: 374 QTc: 472 [place]: P: PA: QRS: 82 T: 267 INTERPRETIVE STATEMENTS: Atrial fibrillation with premature ventricular or aberrantly conducted complexes ST & T wave abnormality, consider anterior ischemia Prolonged QT Abnormal ECG Compared to ECG 10/15/2024 14:19:33 Ventricular premature complex(es) now present ST (T wave) deviation now present Possible ischemia now present Prolonged QT interval now present Right-axis deviation no longer present T-wave abnormality no longer present Electronically Signed On 10-18-24 13:19:23 CDT by Winston Bland
== END 2024-10-17 16:50 | disposition home or self-care (01) | DRG 291 ==
LOC: ER 10:52 → ERHOLD 14:52 → 2ND 20:18 → OBSVTOIN 10-16 12:17
PROVIDERS: ADMIT Hospitalist; ATTEND Hospitalist
PROC: B24BZZ4 Ultrasonography of Heart with Aorta, Transesophageal (ICD-10-PCS; principal; 2024-10-17)
PROC: 5A2204Z Restoration of Cardiac Rhythm, Single (ICD-10-PCS; 2024-10-17)
DX: I11.0 Hypertensive heart disease with heart failure (principal); I50.31 Acute diastolic (congestive) heart failure; I48.19 Other persistent atrial fibrillation; R42 Dizziness and giddiness; Z79.01 Long term (current) use of anticoagulants; Z79.899 Other long term (current) drug therapy; Z11.52 Encounter for screening for COVID-19
CPT/HCPCS: 01922; 36415; 71045; 80048; 80053; 80076; 83690; 83735; 83880; 84100; 84439; 84443; 84484; 85025; 85610; 92960; 93005; 93306; 93312; 96361; 96374; 96375; 99285; G0378; J1160; J1940; J2003; J2704; J7030; J7040

== ENCOUNTER 2024-11-20 15:23 | Emergency (ER) | payer OTHER ==
[2024-11-20] MEDS ORDERED: METHYLPREDNISOLONE 125 MG INJ ONE (16:12)
[2024-11-20] MEDS ORDERED: FAMOTIDINE 20 MG/2 ML VIAL IV ONE (16:12)
[2024-11-20] MEDS ORDERED: DIPHENHYDRAMINE 50 MG/ML VIAL ONE (16:12)
[2024-11-20] MEDS ORDERED: NA CHLORIDE 0.9% 1,000 ML ONE ×2 (16:22→17:17)
[2024-11-20] MEDS ORDERED: FOLIC ACID 5 MG/ML VIAL ONE (16:23)
[2024-11-20 16:37] LABS: Absolute Basophils 0.1 K/uL (0-0.5); Absolute Eosinophils 0.2 K/uL (0-0.5); Absolute Lymphocytes (CBC) 2.1 K/uL (0.7-4.9); Absolute Monocytes 0.9 K/uL (0.1-1.3); Absolute Neutrophil 6.5 K/uL (1.8-8.0); Basophils % 0.9 % (0-1.3); Eosinophils % 1.9 % (0-4.4); Hematocrit 43.1 % (36.0-45.0); Hemoglobin 14.7 g/dL (12.0-15.0); Lymphocytes % 21.4 % (15.3-44.8); MCH 30.9 pg (27.0-35.0); MCHC 34.1 g/dL (32.0-36.0); MCV 90.9 fL (80-100); MPV 10.5 fL (7.6-11.3); Neutrophils % 66.8 % (41.7-73.7); Platelets 239 thou/uL (152-406); RBC Red Blood Cell Count 4.74 M/uL (3.86-4.86); Red Cell Distribution Width 14.4 % (12.1-15.2)
[2024-11-20 16:43] LABS: PT Prothrombin Time 11.8 SECONDS (10-13.0); Protime INR 1.04
--- NOTE | 2024-11-20 16:48 | RAD REPORT ---
EXAMINATION: Ct Stroke Brain Wo Cont CLINICAL INDICATION: Female, 74 years old.STROKE ALERT TECHNIQUE: Axial CT images from the skull base to the vertex without intravenous contrast using a str johanne protocol. Coronal and sagittal reformatted images were created from the data set. One or more of the following dose reduction techniques were used: Automated exposure control, adjustment of the m A and/or kV according to patient size, and/or iterative reconstruction. Unless otherwise specified, incidental findings do not require dedicated imaging follow-up. [id number]. COMPARISON: No prior exam. FINDINGS: INTRACRANIAL: No acute intracranial hemorrhage. No hydrocephalus. No mass effect or midline shift. No significant white matter disease. VASCULATURE: No visualized abnormalities in the arteries or dural venous sinuses. SCALP/SKULL: No calvarial fracture identified. No acute soft tissue abnormality. SINUSES: The visualized paranasal sinuses are mostly clear. No significant mastoid fluid. IMPRESSION: No acute intracranial abnormality. The findings were communicated to Dr. Smith on 11/20/2024 4 PM.
--- NOTE | 2024-11-20 16:49 | RAD REPORT ---
EXAMINATION: Neck Angio CLINICAL INDICATION: Female, 74 years old. PAIN TECHNIQUE: Axial CT images were obtained from the aortic arch to the skull base after intravenous con trast utilizing angiographic protocol with 3D post-processing (maximum intensity projection images, volume rendered images and/or shaded surface rendered images). One or more of the following dose redu ction techniques were used: Automated exposure control, adjustment of the mA and/or kV according to patient size, and/or iterative reconstruction. Unless otherwise specified, incidental findings do not require dedicated imaging follow-up. [id number]. NASCET criteria used. Mild 0-49% stenosis Moderate 50-69% stenosis Severe 70-99% stenosis COMPARISON: No prior exam. FINDINGS: AORTA: Normal RIGHT: - CCA: Patent - ICA: Patent - ECA: Patent LEFT: - CCA: Patent - ICA: Patent - ECA: Patent VERTEBRAL: Patent SOFT TISSUE: No significant neck soft tissue abnormalities. The visualized lung apices are clear. 3D images confirm these findings. IMPRESSION: No arterial dissection or stenosis identified within the neck.
--- NOTE | 2024-11-20 16:53 | RAD REPORT ---
EXAMINATION: Head angio CLINICAL INDICATION: Female, 74 years old. TIA TECHNIQUE: Axial CT images were obtained through the head after intravenous contrast utilizing angiog raphic protocol with 3D post-processing (maximum intensity projection images, volume rendered images and/or shaded surface rendered images). One or more of the following dose reduction technique s were used: Automated exposure control, adjustment of the mA and/or kV according to patient size, and/or iterative reconstruction. Unless otherwise specified, incidental findings do not require dedic ated imaging follow-up. COMPARISON: No prior exam. FINDINGS: RIGHT: ICA: Patent EMMETT: Patent MCA: Patent STRATEGIC INSIGHTS LEAD: Patent. origin of the right STRATEGIC INSIGHTS LEAD. LEFT: ICA: Patent EMMETT: Patent MCA: Patent STRATEGIC INSIGHTS LEAD: Left P2 segment STRATEGIC INSIGHTS LEAD occlusion Vertebrobasilar: The vertebral arteries are patent. The basilar artery is normal in appearance. 3D images confirm these findings. 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 No aneurysm. No stenosis. THIS REPORT CONTAINS FINDINGS THAT MAY BE CRITICAL TO PATIENT CARE. The emergent findings were commun icated to Dr. Smith on 11/20/2024 4:50 PM.
--- NOTE | 2024-11-20 16:54 | RAD REPORT ---
EXAM: Chest Single View HISTORY: 74 years Female COUGH COMPARISON: 10/15/2024 FINDINGS: LUNGS/PLEURA: Diffuse prominence of the pulmonary interstitium. No consolidative airspace disease. CARDIAC/MEDIASTINUM: Mild cardiomegaly UPPER ABDOMEN: No significant abnormality. BONES: No acute abnormality. LINES/TUBES/OTHER: N/A IMPRESSION: No pulmonary edema suspected.
[2024-11-20 17:02] LABS: Albumin 3.2 g/dL (3.4-5.0); Albumin/Globulin Ratio 0.8 (1.1-1.8); Anion Gap 10.3 mEq/L (5.0-15.0); Bilirubin Direct 0.2 mg/dL (0-0.2); Bilirubin Indirect, Calculated 0.2 mg/dL (0.2-0.8); Bilirubin Total 0.4 mg/dL (0.2-1.0); C-Reactive Protein 6.11 mg/L (<3.00); Globulin 3.9 g/dL (2.3-3.5); Magnesium 2.1 mg/dL (1.6-2.4); Potassium 4.3 mEq/L (3.5-5.1); Protein, Total 7.1 g/dL (6.4-8.2); Troponin High Sensitivity 8.2 pg/mL (<58.9)
[2024-11-20] MEDS ORDERED: ASPIRIN 81 MG CHEWABLE TABLET ONE (17:16)
--- NOTE | 2024-11-20 17:22 | ER ---
Nurse's Notes [facility] Name: Marlen Zheng Age: 74 yrs Sex: Female : 1950 Arrival Date: 11/20/2024 Time: 15:23 Bed 14 Private MD: Diagnosis: Persistent atrial fibrillation-WITH RVR;Cerebral infarction, unspecified-ACUTE CVA, WITH LEFT P2 OCCLUSION Presentation: 11/20 16:43 Chief complaint: EMS states: TONED OUT FOR NUMBNESS AND WEAKNESS OF RT ARM AND LEG. EMS dd2 REPORTS LAST KNOWN WELL 0630 THIS MORNING PT REPORTED NUMBNESS NAD TINGLING TO RT SIDE OF BODY. AT APPROX 3:30 RT ARM AND RT LEG BECAME WEAK. Coronavirus screen: At this time, the client does not indicate any symptoms associated with coronavirus-19. Ebola Screen: No symptoms or risks identified at this time. Initial Sepsis Screen: Does the patient meet any 2 criteria? No. Patient's initial sepsis screen is negative. Does the patient have a suspected source of infection? No. Patient's initial sepsis screen is negative. Risk Assessment: Do you want to hurt yourself or someone else? Patient reports no desire to harm self or others. Onset of symptoms was November 20, 2024 at 06:30. Care prior to arrival: IV initiated. 18 GA, in the left antecubital area, Glucose check: 96. 16:43 Method Of Arrival: EMS: [facility] dd2 16:43 Acuity: TRICIA 2 dd2 Triage Assessment: 16:49 General: Appears in no apparent distress. Behavior is calm, cooperative, appropriate dd2 for age. Pain: Denies pain. EENT: No deficits noted. No signs and/or symptoms were reported regarding the EENT system. 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 Cardiovascular: Patient's skin is warm and dry. Rhythm is irregular. Respiratory: No deficits noted. Airway is patent Respiratory effort is even, unlabored, Respiratory pattern is regular, symmetrical. GI: Abdomen is obese. : No deficits noted. No signs and/or symptoms were reported regarding the genitourinary system. Derm: No deficits noted. No signs and/or symptoms reported regarding the dermatologic system. Musculoskeletal: Range of motion: limited in RLE RUE. Historical: - Allergies: 16:49 No Known Allergies; dd2 - PMHx: 16:49 Atrial fibrillation; Hypertensive disorder; Vertigo; dd2 - PSHx: 16:49 None; dd2 - Immunization history:: Adult Immunizations up to date. - Infectious Disease History:: Denies. - Social history:: Smoking status: Patient denies any tobacco usage or history of. Screenin:10 [facility] [place] ED Fall Risk Assessment (Adult) History of falling in the last 3 months, dd2 including since admission No falls in past 3 months (0 pts) Confusion or Disorientation No (0 pts) Intoxicated or Sedated No (0 pts) Impaired Gait Yes (1 pt) Mobility Assist Device Used Yes (1 pt) Altered Elimination No (0 pt) Score/Fall Risk Level 3 or more points = High Risk Oriented to surroundings, Maintained a safe environment, Educated pt \T\ family on fall prevention, incl call for assistance when getting out of bed, Assessed \T\ reinforced patient's understanding of fall precautions, Hourly rounding (assess needs \T\ fall precautionary measures) done, Offered frequent toileting (1:1 observation). Abuse screen: Denies threats or abuse. Denies injuries from another. Nutritional screening: No deficits noted. Tuberculosis screening: No symptoms or risk factors identified. VAN Screening: Arm Drift: Flaccid or no effort against gravity. Visual Disturbance: No visual disturbance noted. Aphasia: Patient exhibits both expressive and receptive aphasia. Provider notified of +VAN scoring. Neglect: No neglect noted. 17:10 [place] Swallow Protocol Exclusion Criteria: Exclusion Criteria Result: Proceed Brief dd2 Cognitive Screen What is your name? Normal, Where are you right now? Normal, What year is it? Normal. Oral Mechanism Examination Facial Symmetry: Abnormal Motion: Normal, Lip Closure: Normal, Oral Mechanism Result: Normal. 3 oz Water Swallow Challenge: Pt able to drink all water without stopping, coughing, choking or throat clearing: Yes Result: PASS. Assessment: 15:51 Reassessment: CODE STROKE CALLED, PT TO CT VIA STRETCHER WITH [employer] العلي. hb 16:49 Reassessment: SEE TRIAGE NOTE FOR FULL ASSESSMENT. dd2 Vital Signs: 16:10 BP 129 / 72; Pulse 106; Resp 16; Pulse Ox 95% ; dd2 16:40 BP 119 / 70; Pulse 119; Resp 16; Pulse Ox 94% on R/A; dd2 16:43 BP 132 / 79; Pulse 123; Resp 16; Temp 98.3; Pulse Ox 95% on R/A; Weight 91.63 kg; dd2 17:10 BP 97 / 53; Pulse 111; Resp 15; Pulse Ox 95% on 2 lpm NC; dd2 17:40 BP 150 / 90; Pulse 119; Resp 16; Pulse Ox 95% on 2 lpm NC; dd2 Walt Coma Score: 16:10 Eye Response: spontaneous(4). Motor Response: obeys commands(6). Verbal Response: dd2 oriented(5). Total: 15. NIH Stroke Scale Scores: 16:10 NIHSS Score: 13 dd2 17:14 NIHSS Score: 13 [facility] ED Course: 15:49 Patient arrived in ED. hb 15:53 Emeka Smith MD is Attending Physician. [facility] 16:01 CT Stroke Brain w/o Contrast In Process Unspecified. EDMS 16:06 CT Head Angio In Process Unspecified. EDMS 16:07 CT Neck Angio In Process Unspecified. EDMS 16:15 Provided Education on: PROCEDURES. Door closed. Noise minimized. Warm blanket given. dd2 Pillow given. 16:18 ISIS BERGER, RN is Primary Nurse. dd2 16:22 XRAY Chest (1 view) In Process Unspecified. EDMS 16:33 Basic Metabolic Panel Sent. dd2 16:33 CBC with Diff Sent. dd2 16:33 LFT's Sent. dd2 16:33 Magnesium Sent. dd2 16:33 NT PRO-BNP Sent. dd2 16:49 Triage completed. dd2 16:49 Arm band placed on right wrist. dd2 17:[address] [facility] by dr smith, pt accepted in transfer to [facility] neuro icu rm [id number] brewer admin approval given by alon panchal,pt to be transported by [facility]. 17:44 No provider procedures requiring assistance completed. EKG done, by ED staff, reviewed dd2 by Emeka Smith MD. Patient maintains SpO2 saturation greater than 95% on room air. 18:17 Patient transferred, IV remains in place. dd2 18:17 Patient has correct armband on for positive identification. Bed in low position. Call dd2 light in reach. Side rails up X2. Client placed on continuous cardiac and pulse oximetry monitoring. NIBP monitoring applied. quality assurance monitor chassis on. Administered Medications: 16:18 Drug: diphenhydrAMINE IVP 25 mg IVP once Route: IVP; Site: left antecubital; dd2 16:32 Follow up: Response: No adverse reaction dd2 16:18 Drug: Famotidine IVP 40 mg IVP once; dilute with 10 mL 0.9% NaCl; give over 2 minutes dd2 Route: IVP; Site: left antecubital; 16:32 Follow up: Response: No adverse reaction dd2 16:18 Drug: MethylPrednisoLONE IVP 125 mg IVP once Route: IVP; Site: left antecubital; dd2 16:32 Follow up: Response: No adverse reaction dd2 16:30 Drug: foLIC Acid IVPB 1 mg IVPB once Route: IVPB; Site: left antecubital; dd2 18:16 Follow up: IV Status: Completed infusion dd2 16:30 Drug: NS 0.9% IV 1000 ml IV at 1000 ml once; to be given as a bolus over 60 minutes dd2 Route: IV; Rate: 1000 ml; Site: left antecubital; 17:30 Follow up: IV Status: Completed infusion dd2 17:08 CANCELLED (Duplicate Order): Heparin (AZ Drip) - ([id number] units, [id number] ml) 12 kenji units/kg/hr IV at calculated rate Per protocol; Max initial rate 1000 units/hr 17:29 Drug: Aspirin PO Chewable Tablet 324 mg PO once; 81 mg tablets x 4 Route: PO; dd2 18:15 Follow up: Response: No adverse reaction dd2 17:29 Drug: NS 0.9% IV 1000 ml IV at 125 ml/hr once; to be given as a bolus over 60 minutes dd2 Route: IV; Rate: 125 ml/hr; Site: left antecubital; 18:15 Follow up: IV Status: Infusion continued upon transfer dd2 Medication: 16:10 VIS not applicable for this client. dd2 Outcome: 17:22 ER care complete, transfer ordered by MD. phillip 18:17 Transferred by helicopter to [facility] [place] [facility], Transfer form completed. dd2 18:17 Condition: stable 18:17 Instructed on the need for transfer, Demonstrated understanding of instructions, 18:18 Patient left the ED. dd2 NIH Stroke Scale - NIH Stroke Score Date: 11/20/2024 Time: 16:10 Total Score = 13 10. Dysarthria (speech clarity - read or repeat words) - 1(Mild to Moderate) 11. Extinction and Inattention (visual/tactile/auditory/spatial/personal) - 1(Present) 1a. Level of Consciousness (LOC) - 0(Alert) 1b. Level of Consciousness (LOC) (Month \T\ Age) - 0(Both) 1c. LOC Commands (Open \T\ Closes Eyes/Commercial Project Manager) - 0(Both) 2. Best Gaze (Lateral Gaze Paresis) - 0(Normal) 3. Visual Field Loss - 0(No visual loss) 4. Facial Palsy - 1(Minor Paralysis) 5a. Left Arm: Motor (10-second hold) - 0(No drift) 5b. Right Arm: Motor (10-second hold) - 3(No effort against gravity) 6a. Left Leg: Motor (5-second hold - always test supine) - 0(No drift) 6b. Right Leg: Motor (5-second hold - always test supine) - 3(No effort against gravity) 7. Limb Ataxia (finger/nose \T\ heel/jaquez - test with eyes open) - 2(Present in two limbs) 8. Sensory Loss (pinprick arms/legs/face) - 1(Mild to moderate loss) 9. Best Language: Aphasia (description/naming/reading) - 1(Mild to moderate aphasia) Initials: dd2 NIH Stroke Scale - NIH Stroke Score Date: 11/20/2024 Time: 17:14 Total Score = 13 10. Dysarthria (speech clarity - read or repeat words) - 1(Mild to Moderate) 11. Extinction and Inattention (visual/tactile/auditory/spatial/personal) - 1(Present) 1a. Level of Consciousness (LOC) - 0(Alert) 1b. Level of Consciousness (LOC) (Month \T\ Age) - 0(Both) 1c. LOC Commands (Open \T\ Closes Eyes/Commercial Project Manager) - 0(Both) 2. Best Gaze (Lateral Gaze Paresis) - 0(Normal) 3. Visual Field Loss - 0(No visual loss) 4. Facial Palsy - 1(Minor Paralysis) 5a. Left Arm: Motor (10-second hold) - 0(No drift) 5b. Right Arm: Motor (10-second hold) - 3(No effort against gravity) 6a. Left Leg: Motor (5-second hold - always test supine) - 0(No drift) 6b. Right Leg: Motor (5-second hold - always test supine) - 3(No effort against gravity) 7. Limb Ataxia (finger/nose \T\ heel/jaquez - test with eyes open) - 2(Present in two limbs) 8. Sensory Loss (pinprick arms/legs/face) - 1(Mild to moderate loss) 9. Best Language: Aphasia (description/naming/reading) - 1(Mild to moderate aphasia) Initials: kenji Signatures: Dispatcher [employer] Esther Mchugh Corey, MD MD cha Baxter, Heather, RN ISIS Dawson RN RN dd2
--- NOTE | 2024-11-20 17:22 | EDPHYS ---
Physician Documentation [facility] Name: Marlen Zheng Age: 74 yrs Sex: Female : 1950 Arrival Date: 11/20/2024 Time: 15:23 Bed 14 Private MD: ED Physician Emeka Smith HPI: 11/20 17:08 This 74 yrs old Female presents to ER via EMS with complaints of Weakness, kenji Numbness. 17:08 The patient presents to the emergency department with weakness of the right upper kenji extremity, right lower extremity, right side of the face, that is moderate, that is severe, a speech or higher order brain function problem, aphasia, that is mild, difficulty standing, paresthesias of the right lower extremity, right upper extremity, right side of the face, that is moderate. Onset: The symptoms/episode began/occurred TINGLING RIGHT ARM , LEG, RIGHT FACE 630 AM, AWOKE 615 AM. Context: occurred at home, occurred while the patient was doing normal activity. Historical: - Allergies: 16:49 No Known Allergies; dd2 - PMHx: 16:49 Atrial fibrillation; Hypertensive disorder; Vertigo; dd2 - PSHx: 16:49 None; dd2 - Immunization history:: Adult Immunizations up to date. - Infectious Disease History:: Denies. - Social history:: Smoking status: Patient denies any tobacco usage or history of. ROS: 17:15 Constitutional: Negative for fever, chills, and weight loss, Eyes: Negative for injury, kenji pain, redness, and discharge, ENT: Negative for injury, pain, and discharge, Neck: Negative for injury, pain, and swelling, Cardiovascular: Negative for chest pain, palpitations, and edema, Respiratory: Negative for shortness of breath, cough, wheezing, and pleuritic chest pain, Abdomen/GI: Negative for abdominal pain, nausea, vomiting, diarrhea, and constipation, Back: Negative for injury and pain, : Negative for injury, bleeding, discharge, and swelling, Skin: Negative for injury, rash, and discoloration, Psych: Negative for depression, anxiety, suicide ideation, homicidal ideation, and hallucinations, Allergy/Immunology: Negative for hives, rash, and allergies, Endocrine: Negative for neck swelling, polydipsia, polyuria, polyphagia, and marked weight changes, Hematologic/Lymphatic: Negative for swollen nodes, abnormal bleeding, and unusual bruising, 17:15 MS/extremity: Positive for decreased range of motion, tingling, of the face, right arm and right leg, 17:15 Neuro: Positive for numbness, speech changes, weakness, of the face, right arm and right leg, TINGLING A 630 AM RIGHT FACE, ARM AND LEG... SUDDEN WEAKNESS RIGHT ARM, LEG AND FACE 345PM, Exam: 17:00 Constitutional: This is a well developed, well nourished patient who is awake, alert, kenji and in no acute distress. Head/Face: Normocephalic, atraumatic. Eyes: Pupils equal round and reactive to light, extra-ocular motions intact. Lids and lashes normal. Conjunctiva and sclera are non-icteric and not injected. Cornea within normal limits. Periorbital areas with no swelling, redness, or edema. ENT: Nares patent. No nasal discharge, no septal abnormalities noted. Tympanic membranes are normal and external auditory canals are clear. Oropharynx with no redness, swelling, or masses, exudates, or evidence of obstruction, uvula midline. Mucous membranes moist. Neck: Trachea midline, no thyromegaly or masses palpated, and no cervical lymphadenopathy. Supple, full range of motion without nuchal rigidity, or vertebral point tenderness. No Meningismus. Chest/axilla: Normal chest wall appearance and motion. Nontender with no deformity. No lesions are appreciated. Cardiovascular: Regular rate and rhythm with a normal S1 and S2. No gallops, murmurs, or rubs. Normal PMI, no JVD. No pulse deficits. Respiratory: Lungs have equal breath sounds bilaterally, clear to auscultation and percussion. No rales, rhonchi or wheezes noted. No increased work of breathing, no retractions or nasal flaring. Abdomen/GI: Soft, non-tender, with normal bowel sounds. No distension or tympany. No guarding or rebound. No evidence of tenderness throughout. Back: No spinal tenderness. No costovertebral tenderness. Full range of motion. Female : Normal external genitalia. Skin: Warm, dry with normal turgor. Normal color with no rashes, no lesions, and no evidence of cellulitis. MS/ Extremity: Pulses equal, no cyanosis. Neurovascular intact. Full, normal range of motion., bilateral aka Psych: Awake, alert, with orientation to person, place and time. Behavior, mood, and affect are within normal limits. 17:00 Neuro: Orientation: is normal, appropriate for stated age, no acute changes, Mentation: is normal, appropriate for stated age, no acute changes, Memory: is normal, appropriate for stated age, no acute changes, Cranial nerves: facial droop noted on right, Motor: Strength is 2/5 in the right arm and right leg, Sensation: numbness, that is moderate, of the face, right arm and right leg, Gait: not tested. Babinski testing is not performed, seizure activity, is not displayed by the patient, 17:14 ECG was reviewed by the Attending Physician. [facility] Vital Signs: 16:10 BP 129 / 72; Pulse 106; Resp 16; Pulse Ox 95% ; dd2 16:40 BP 119 / 70; Pulse 119; Resp 16; Pulse Ox 94% on R/A; dd2 16:43 BP 132 / 79; Pulse 123; Resp 16; Temp 98.3; Pulse Ox 95% on R/A; Weight 91.63 kg; dd2 17:10 BP 97 / 53; Pulse 111; Resp 15; Pulse Ox 95% on 2 lpm NC; dd2 17:40 BP 150 / 90; Pulse 119; Resp 16; Pulse Ox 95% on 2 lpm NC; dd2 NIH Stroke Scale Scores: 16:10 NIHSS Score: 13 dd2 17:14 NIHSS Score: 13 kenji Walt Coma Score: 16:10 Eye Response: spontaneous(4). Motor Response: obeys commands(6). Verbal Response: dd2 oriented(5). Total: 15. MDM: 15:53 Medical Screening Exam initiated kenji 17:22 Data reviewed: vital signs, nurses notes, EMS record, lab test result(s), EKG, [facility] radiologic studies, CT scan, plain films. Consideration of Admission/Observation Escalation of care including admission/observation considered. I considered the following discharge prescriptions or medication management in the emergency department Medications were administered in the Emergency Department. See MAR. Independent interpretation of the following test(s) in the Emergency Department EKG: See my EKG interpretation above. Test considered but Not performed: MRI: NO MRI AVAILABLE. Historians other than the Patient: EMS: EMS WELL INFORMED. Care significantly affected by the following chronic conditions: Hypertension, Obesity, A FIB NO ANTICOAGULATION. Counseling: I had a detailed discussion with the patient and/or guardian regarding the historical points, exam findings, and any diagnostic results supporting the discharge/admit diagnosis, lab results, radiology results, the need to transfer to another facility, for higher level of care, [facility] does not immediately have the required specialist. 11/20 15:55 Order name: Basic Metabolic Panel; Complete Time: 17: [facility] 11/20 15:55 Order name: CBC with Diff; Complete Time: 17: [facility] 11/20 15:55 Order name: LFT's; Complete Time: 17: [facility] 11/20 15:55 Order name: Magnesium; Complete Time: 17: [facility] 11/20 15:55 Order name: NT PRO-BNP; Complete Time: 17:11/20 15:55 Order name: PT-INR; Complete Time: 17: kenji 11/20 15:55 Order name: Troponin HS; Complete Time: 17: [facility] 11/20 15:55 Order name: CRP; Complete Time: 17: [facility] 11/20 15:55 Order name: XRAY Chest (1 view); Complete Time: 17: [facility] 11/20 15:55 Order name: CT Stroke Brain w/o Contrast; Complete Time: 17: [facility] 11/20 15:55 Order name: CT Head Angio; Complete Time: 17:06 [facility] 11/20 15:55 Order name: CT Neck Angio; Complete Time: 17:06 [facility] 11/20 15:55 Order name: Cardiac monitoring; Complete Time: 17:44 [facility] 11/20 15:55 Order name: EKG - Nurse/Tech; Complete Time: 17:44 [facility] 11/20 15:55 Order name: IV Saline Lock; Complete Time: 16:25 [facility] 11/20 15:55 Order name: Labs collected and sent; Complete Time: 16:33 [facility] 11/20 15:55 Order name: O2 Per Protocol; Complete Time: 16:25 [facility] 11/20 15:55 Order name: O2 Sat Monitoring; Complete Time: 16:25 [facility] 11/20 15:55 Order name: IV Saline Lock - Large Bore; Complete Time: 16:24 kenji EC:14 Rate is 116 beats/min. Rhythm is irregularly irregular. QRS Winter is Normal. AR interval kenji is normal. QRS interval is normal. QT interval is normal. No Q waves. T waves are Normal. No ST changes noted. Clinical impression: Atrial Fibrillation and No evidence of ischemia. Interpreted by me. Reviewed by me. Administered Medications: 16:18 Drug: diphenhydrAMINE IVP 25 mg IVP once Route: IVP; Site: left antecubital; dd2 16:32 Follow up: Response: No adverse reaction dd2 16:18 Drug: Famotidine IVP 40 mg IVP once; dilute with 10 mL 0.9% NaCl; give over 2 minutes dd2 Route: IVP; Site: left antecubital; 16:32 Follow up: Response: No adverse reaction dd2 16:18 Drug: MethylPrednisoLONE IVP 125 mg IVP once Route: IVP; Site: left antecubital; dd2 16:32 Follow up: Response: No adverse reaction dd2 16:30 Drug: foLIC Acid IVPB 1 mg IVPB once Route: IVPB; Site: left antecubital; dd2 18:16 Follow up: IV Status: Completed infusion dd2 16:30 Drug: NS 0.9% IV 1000 ml IV at 1000 ml once; to be given as a bolus over 60 minutes dd2 Route: IV; Rate: 1000 ml; Site: left antecubital; 17:30 Follow up: IV Status: Completed infusion dd2 17:08 CANCELLED (Duplicate Order): Heparin (AR Drip) - ([id number] units, [id number] ml) 12 kenji units/kg/hr IV at calculated rate Per protocol; Max initial rate 1000 units/hr 17:29 Drug: Aspirin PO Chewable Tablet 324 mg PO once; 81 mg tablets x 4 Route: PO; dd2 18:15 Follow up: Response: No adverse reaction dd2 17:29 Drug: NS 0.9% IV 1000 ml IV at 125 ml/hr once; to be given as a bolus over 60 minutes dd2 Route: IV; Rate: 125 ml/hr; Site: left antecubital; 18:15 Follow up: IV Status: Infusion continued upon transfer dd2 Disposition Summary: 11/20/24 17:22 Transfer Ordered Notes: Transfer Location: [facility] kenji Reason: Higher level of care kenji Condition: Serious kenji Problem: new kenji Symptoms: are unchanged kenji Accepting Physician: TO NEURO ICU(11/20/24 18:18) dd2 Diagnosis - Persistent atrial fibrillation - WITH RVR kenji - Cerebral infarction, unspecified - ACUTE CVA, WITH LEFT P2 OCCLUSION kenji Forms: - Medication Reconciliation Form kenji - SBAR form kenji Critical care time excluding procedures: 17:24 Critical care time: Bedside Care: 35 minutes, Consultation: 15 minutes, Family kenji Intervention: 10 minutes. Total time: 60 minutes NIH Stroke Scale - NIH Stroke Score Date: 11/20/2024 Time: 16:10 Total Score = 13 10. Dysarthria (speech clarity - read or repeat words) - 1(Mild to Moderate) 11. Extinction and Inattention (visual/tactile/auditory/spatial/personal) - 1(Present) 1a. Level of Consciousness (LOC) - 0(Alert) 1b. Level of Consciousness (LOC) (Month \T\ Age) - 0(Both) 1c. LOC Commands (Open \T\ Closes Eyes/Automation Driver) - 0(Both) 2. Best Gaze (Lateral Gaze Paresis) - 0(Normal) 3. Visual Field Loss - 0(No visual loss) 4. Facial Palsy - 1(Minor Paralysis) 5a. Left Arm: Motor (10-second hold) - 0(No drift) 5b. Right Arm: Motor (10-second hold) - 3(No effort against gravity) 6a. Left Leg: Motor (5-second hold - always test supine) - 0(No drift) 6b. Right Leg: Motor (5-second hold - always test supine) - 3(No effort against gravity) 7. Limb Ataxia (finger/nose \T\ heel/jaquez - test with eyes open) - 2(Present in two limbs) 8. Sensory Loss (pinprick arms/legs/face) - 1(Mild to moderate loss) 9. Best Language: Aphasia (description/naming/reading) - 1(Mild to moderate aphasia) Initials: dd2 NIH Stroke Scale - NIH Stroke Score Date: 11/20/2024 Time: 17:14 Total Score = 13 10. Dysarthria (speech clarity - read or repeat words) - 1(Mild to Moderate) 11. Extinction and Inattention (visual/tactile/auditory/spatial/personal) - 1(Present) 1a. Level of Consciousness (LOC) - 0(Alert) 1b. Level of Consciousness (LOC) (Month \T\ Age) - 0(Both) 1c. LOC Commands (Open \T\ Closes Eyes/Automation Driver) - 0(Both) 2. Best Gaze (Lateral Gaze Paresis) - 0(Normal) 3. Visual Field Loss - 0(No visual loss) 4. Facial Palsy - 1(Minor Paralysis) 5a. Left Arm: Motor (10-second hold) - 0(No drift) 5b. Right Arm: Motor (10-second hold) - 3(No effort against gravity) 6a. Left Leg: Motor (5-second hold - always test supine) - 0(No drift) 6b. Right Leg: Motor (5-second hold - always test supine) - 3(No effort against gravity) 7. Limb Ataxia (finger/nose \T\ heel/jaquez - test with eyes open) - 2(Present in two limbs) 8. Sensory Loss (pinprick arms/legs/face) - 1(Mild to moderate loss) 9. Best Language: Aphasia (description/naming/reading) - 1(Mild to moderate aphasia) Initials: kenji Signatures: Dispatcher [employer] EDMS Emeka Smith MD MD cha DAVIS, DIANA RN RN dd2 Corrections: (The following items were deleted from the chart) 15:56 15:55 BASIC METABOLIC PANEL+C.LAB.BRZ ordered. EDMS EDMS 15: 15:55 CBC+H.LAB.BRZ ordered. EDMS EDMS 15: 15:55 HEPATIC FUNCTION+C.LAB.BRZ ordered. EDMS EDMS 15: 15:55 MAGNESIUM+C.LAB.BRZ ordered. EDMS EDMS 15: 15:55 PROBNP+C.LAB.BRZ ordered. EDMS EDMS 15:56 15:55 PROTIME (+INR)+COAG.LAB.BRZ ordered. EDMS EDMS 15: 15:55 Troponin High Sensitivity+C.LAB.BRZ ordered. EDMS EDMS 15: 15:55 UA Rfx Chago Cult if indicated+U.LAB.BRZ ordered. EDMS EDMS 15:56 15:55 C-REACTIVE PROTEIN+C.LAB.BRZ ordered. EDMS EDMS 15:56 15:56 Chest Single View+RAD.RAD.BRZ ordered. EDMS EDMS 15: 15:56 CT-STROKE BRAIN W/O CONTRAST+CT.RAD.BRZ ordered. EDMS EDMS 15:56 15:56 Head Angio+CT.RAD.BRZ ordered. EDMS EDMS 15:56 15:56 Neck Angio+CT.RAD.BRZ ordered. EDMS EDMS 17:08 16:58 Heparin (AR Drip) 12 units/kg/hr - ([place] [id number] units, D5W IV 500 kenji ml) IV at calculated rate Per protocol; Max initial rate 1000 units/hr ordered. kenji 18:18 17:22 TO NEURO ICU kenji dd2
[2024-11-20 19:50] VITALS: TEMP 98.3; O2SAT 95
[2024-11-20 19:53] VITALS: BP 150/90
--- NOTE | 2024-11-21 11:41 | EKG ---
Test Date: 2024-11-20 Test Time: 16:58:18 Field Sales Engineer: SKYLER MEASUREMENT RESULTS: Intervals: Rate: 116 [place]: QRSD: 80 QT: 358 QTc: 497 [place]: P: [place]: QRS: 85 T: 263 INTERPRETIVE STATEMENTS: Atrial fibrillation with rapid ventricular response Marked ST abnormality, possible inferior subendocardial injury Abnormal ECG Compared to ECG 10/17/2024 09:26:49 Ventricular premature complex(es) no longer present Possible ischemia no longer present Prolonged QT interval no longer present ST (T wave) deviation still present Electronically Signed On 11-21-24 11:39:00 CDT by Winston Bland
== END 2024-11-20 18:18 | disposition short-term general hospital (02) ==
LOC: ER 15:23
DX: I63.532 Cerebral infarction due to unspecified occlusion or stenosis of left posterior cerebral artery (principal); I48.19 Other persistent atrial fibrillation; R29.713 NIHSS score 13; I10 Essential (primary) hypertension
CPT/HCPCS: 96365; 93005; 85025; 80048; 36415; 83735; 85610; 80076; 84484; 83880; 86140; 70496; 70498; 70450; 71045; 96375; 99285; 96366; Q9967; J1200; J2919; J7030 ×2

== ENCOUNTER 2024-11-24 15:34 | Inpatient (IN) | payer OTHER ==
[2024-11-25] MEDS ORDERED: POLYETHYL GLY 3350 17 GM/DOSE PO PRN (13:55)
[2024-11-25 14:05] VITALS: BMI 31.6
[2024-11-25 14:57] LABS: Specific Gravity 1.009 (1.005-1.030); Sqamous Epithelial <5 /HPF (None Seen); Urine Bacteria <20 /HPF (<20); Urine Bilirubin NEGATIVE (Negative); Urine Blood 3+ (OVER) (Negative); Urine Clarity Extremely Turbid (Clear); Urine Color Light-Yellow (Yellow); Urine Crystals Unidentified Few /HPF (None Seen); Urine Culture Reflex Order NOT NEEDED; Urine Glucose NEGATIVE (Negative); Urine Ketones 2+ (Negative); Urine Microscopic Reflex YN ORDER UMIC; Urine Mucus Slight /HPF (None Seen); Urine Nitrite NEGATIVE (Negative); Urine Protein NEGATIVE (Negative); Urine RBC >50 /HPF (None Seen); Urine Urobilinogen Normal (Normal); Urine WBC <5 /HPF (<5)
[2024-11-25] MEDS: SOTALOL HCL 80 MG TAB PO SCH (18:00)
[2024-11-25] MEDS: DILTIAZEM HCL 60 MG TAB PO SCH (20:00)
[2024-11-25] MEDS: DOCUSATE NA/SENNA CONC 1 TAB PO SCH (20:00)
[2024-11-25] MEDS: MELATONIN 3 MG TABLET PO SCH (20:41)
[2024-11-25] MEDS: APIXABAN 5 MG TABLET PO SCH (20:41)
[2024-11-25] MEDS: ATORVASTATIN 80 MG TAB PO SCH (20:41)
--- NOTE | 2024-11-26 05:01 | HP ---
Date of Admission: 11/25/2024 Time Of Service: 1 p.m. Chief Complaint: "My right side is still not working well after my stroke." History Of Present Illness: Ms. Zheng is a 74-year-old patient with atrial fibrillation, hypertens ion, who was not on anticoagulation and stopped in June 2024 due to her not being able to afford the cost of Eliquis over 500 dollars a month. She developed on November 20, 2024, right-sided numbness, fa cial tingling, and weakness including face and arm. She was seen and evaluated by head CT scan with no acute findings. She was outside of the window for any acute intervention intravenously and CT ang iogram showed P2 segment occlusion on the left. She was transferred to [facility] for possibility of intra-arterial thrombectomy; however, she was found not to be a candidate due to distal occlusion. She was restarted on anticoagulation on 11/21. She was transferred to the [facility] for further management. While she has improved right-sided weakness, she still has significant rig ht residual weakness and numbness in the right face and arm. She did have development of urticaria r equiring Benadryl while hospitalized. She was evaluated by transesophageal echocardiogram, which did not identify a thrombus. She restarted diltiazem for blood pressure control. Prior to her stroke, she lives alone independently with no need for an assistive device, taking care of her own activities of daily living without difficulty. Currently, she requires moderate assistance for bed mobility, m inimum assistance for sit to stand and for marching in place and for gait. She does require setup as sistance for eating, moderate assistance for grooming and upper body dressing, and total assistance f or lower body dressing. She does require monitoring of her heart rate with atrial fibrillation, the possibility of rapid ventricular response is possible. In addition, the risk of aspiration pneumonia is present and she requires evaluation by chest x-ray and urinalysis also will be followed to rule o ut a urinary tract infection. Inpatient rehabilitation is necessary. If she is discharged [facility] a [facility], she is not likely to recover as quickly and fully. Furthermore, inpatient rehab ilitation will help to reduce her risk of rehospitalization. Past Medical History: As noted above with hypertension, atrial fibrillation in addition to mild dysp hagia and dysarthria. Allergies: NO KNOWN DRUG ALLERGIES. Current Medications: Tylenol 500 mg every 4 hours as needed, Eliquis 5 mg twice daily, Lipitor 80 mg at bedtime, diltiazem 60 mg twice daily, magnesium oxide 400 mg daily, melatonin 3 mg at bedtime, Se nokot-S 1 tablet twice daily, sotalol 50 mg twice daily. Laboratory Studies: White blood cell count 12.0, hemoglobin 13.6, hematocrit 41.5, platelets 240, cr eatinine 0.64, calcium 8.6, potassium 3.6, glucose 82, BUN 14, sodium 140. As noted above, she does have on MRI of the brain, left thalamic stroke as noted. 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 Family History: Noncontributory. Social History: The patient lives alone. Drinks no alcohol, tobacco, or IV drug use. She manages h er own activities of daily living without difficulty. Review of Systems: She does have the difficulty with articulation and some problem with swallowing which is mild. She h as incoordination of the right hand, unable to fully use the right hand as she would like to. 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 Current Level Of Functioning: She is at modified independence for eating, grooming moderate assistan ce required, bathing maximum assistance, upper body dressing moderate assistance, dependent for lower body dressing and toileting. She is at moderate assistance level for transfers from bed, chair, soren let, and ambulation. She is dependent covering this 5 feet. Physical Examination: Vital Signs: Blood pressure ranging 95 to 121 over 50 to 75, pulse ranged from 65 to 102, temperatur e 98.0, respiratory rate 18, oxygen saturation 94%. Weight 184 pounds, height 5 feet, BMI 31.7. General: Ms. Zheng is sitting comfortably in a chair. HEENT: She is normocephalic, atraumatic. Sclerae anicteric. Oropharynx pink and moist. Neck: Supple. Heart: Irregularly irregular. Abdomen: Soft. Extremities: Show no significant clubbing, cyanosis, or edema. Neurologic: Cranial nerve examination shows a mild decrease of the right nasolabial fold with good e xcursions and smiling. She has decreased sensation to light touch and temperature over the right fac e. Right arm, she has moderate weakness, again begin to women's swim coach. 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 She is able to lift the hand above her head and hold it there with mild risk factor and low count. She has decreased sensation of the r ight face and arm compared to her left side. She has fair strength in the right leg and mild decreas ed sensation, but not to any significant extent as in the right upper extremity. She does have some incoordination and loss of balance and did fall to her right as she is ambulating. Rehab And Medical Assessment And Plan: Ms. Zheng is a 74-year-old patient, admitted to the [facility] rehabilitation unit with impairment category 01, stroke. Her impairment group code is 01.2, right body involvement, left brain. Her etiologic diagnosis is acute left thalamic stroke. Comorbid cond itions; increased atrial fibrillation, hypertension with hypotension, arthritis, dysarthria, dysphagi a, mild insomnia, and dyslipidemia. Plan: She will have physical, occupational, and speech therapy for 3.5 hours, 5 of 7 days. Will con tinue Tylenol 500 mg every 4 hours for mild to moderate pain, Eliquis 5 mg twice daily for atrial fib rillation, Lipitor 80 mg at bedtime for dyslipidemia, diltiazem 60 mg daily along with sotalol 80 mg twice daily for heart rate and blood pressure control, Senokot for constipation, melatonin for insomn ia, magnesium oxide for muscle spasms. Comorbidities That Are Impacting Rehabilitation: The presence of atrial fibrillation while she is on Eliquis for that does put her at high risk of bleeding and if she is to fall and impact a noncompres sible site such as GI region or brain, there is a risk of significant complications. Therefore, fall precautions will be strictly adhered to at all times. The risk of aspiration is present and she rubi l be evaluated for aspiration pneumonia with chest x-ray as appropriate. The patient is at risk of d epression given the recent stroke and inability to use her dominant right hand which will be potentia lly addressed with an antidepressant medication if need be. She was fully independent and would like ly need significant assistance prior to being able to go back to a fully independent life. Rehab Specific Plan: Ms. Zheng will have physical, occupational, and speech therapy 3.5 hours, 5 o f 7 days to improve her ability to speak, to communicate, to swallow, to protect her airway, and to h elp her with mood improvement and may clear her cognitive functioning as close to returning to [facility] as possible. She will have physical therapy help her with transfer from bed to chair, to toilet, to wheelchair, to mobilize distances, at least household distances, go up and down at least 10 steps and mobilize a wheelchair over 275 feet. She will have occupational therapy help her dressing of upp er and lower body, donning and doffing footwear, performing activities of daily living as well. Ms. Zheng has a good understanding of the process of admission to inpatient rehabilitation unit and how she will benefit from physical, occupational, and speech therapy. She will have 24 hours a day, 7 days a week skilled rehabilitation and nursing, daily physician evaluation and management, and [facility] evaluation and management for discharge planning, home equipment, and to continue therap y after discharge. If need be, additional help will be sought from the Hospitalist Service. Barriers To Discharge: Again, there is a risk of increased bleeding from atrial fibrillation while o n Eliquis and if there is a fall with noncompressible site , she will be again carefully mo nitored. If extended stay required, she may have to go to [facility]. However, the goal is to return home and live independently. Length Of Stay: About 2 weeks. Disposition: Back to be home to continue therapy via Home Health to do physical therapy and likely s peech. Prognosis: Good. Code Status: Full code. Rehab Specific Goals: 1. Become independent with upper and lower body dressing and donning and doffing footwear. 2. Independently communicate effectively and protect her airway without risk of aspiration. 3. Independently ambulate at least 250 feet with a rolling walker and mobilize a wheelchair 250 feet. 4. Independently go up and down 10 steps with bilateral handrails. 5. Independently perform her safety awareness issues including keeping her balance, reducing risk of falling and injury. The above goals were reviewed with Ms. Zheng and she is in agreement. By signing this document, I acknowledge I personally performed a full physical examination on Ms. Hreber waite no later than 24 hours after her admission to the inpatient rehabilitation unit and determined t hat she is able to tolerate the above course of treatment at an intensive level for a reasonable carola od of time. A detailed individualized plan of care for her will be completed by hospital day 4 based on the preadmission screen, history and physical, and therapy evaluations. MAGGIE Voice ID: [id number]
[2024-11-26 05:12] LABS: Absolute Basophils 0.1 K/uL (0-0.5); Absolute Eosinophils 0.3 K/uL (0-0.5); Absolute Lymphocytes (CBC) 3.5 K/uL (0.7-4.9); Absolute Neutrophil 5.6 K/uL (1.8-8.0); Basophils % 0.8 % (0-1.3); Eosinophils % 3.3 % (0-4.4); Hematocrit 41.4 % (36.0-45.0); Hemoglobin 13.9 g/dL (12.0-15.0); Lymphocytes % 33.1 % (15.3-44.8); MCHC 33.6 g/dL (32.0-36.0); MCV 89.4 fL (80-100); MPV 10.6 fL (7.6-11.3); Monocytes % 9.4 % (3.3-12.3); Neutrophils % 53.4 % (41.7-73.7); Nucleated Red Blood Cells % 0.1 % (0-0); Platelets 220 thou/uL (152-406); RBC Red Blood Cell Count 4.63 M/uL (3.86-4.86)
[2024-11-26 05:30] LABS: Albumin 2.7 g/dL (3.4-5.0); Anion Gap 9.5 mEq/L (5.0-15.0); Magnesium 2.1 mg/dL (1.6-2.4); Potassium 3.5 mEq/L (3.5-5.1)
[2024-11-26] MEDS: MAGNESIUM OXIDE 400 MG TAB PO SCH (08:39)
[2024-11-26] MEDS: ENSURE HIGH PROTEIN 237 ML CAN PO SCH (20:26)
--- NOTE | 2024-11-26 23:51 | PN ---
Date of Progress Note: 11/26/2024 Time Of Service: 1:50 p.m. Subjective: Ms. Zheng does report feeling somewhat better with the right-sided incoordination and weakness from her left thalamic stroke, where she has significant resistance abnormality and inabilit y to hold on to objects unless she is looking at them. Objective: She denies any fevers, chills, nausea, vomiting. No significant myalgias, arthralgias, r sudeep, or psychiatric complaints. Physical Examination: Vital Signs: Blood pressure 111/51, pulse 70, respiratory rate 16 to 18, temperature 97.8, oxygen sa turation 97%. Weight 184 pounds, height 5 feet, BMI 31.7. General: Again, Ms. Zheng is sitting in a chair beside the bed. HEENT: She appears normocephalic, atraumatic. Sclerae anicteric. Oropharynx pink and moist. Neck: Supple. Chest: Clear. Neurologic: She does have decreased right nasolabial fold with fair excursion. She has significant sensory loss and loss of proprioception in the right upper extremity. Strength is fair against gravi ty at the biceps and fingers, and wrist extension and flexion. She has more strength in the right lo wer extremity, more sensation there as well. Laboratory Studies: Complete blood count with differential is completely normal. Basic metabolic pa mark normal except slightly low prealbumin of 14.0. Albumin 7.2. Calcium 8.4, magnesium 2.1. Urinal ysis shows 3+ ketones, 3+ blood, greater than 50 white blood cells, extreme turbidity. Cultures are pending. X-ray Or Imaging: No new x-rays or imaging. Medications: Tylenol Extra Strength 500 mg every 4 hours as needed, Eliquis 5 mg twice daily for DVT prophylaxis and stroke risk reduction with atrial fibrillation, Lipitor 80 mg at bedtime, Os-Amrik plu s D one daily, diltiazem 60 mg twice daily, magnesium oxide 400 mg daily, melatonin 3 mg at bedtime, Ensure High Protein 237 mL twice daily, Senokot S one twice daily, sotalol 80 mg twice daily. X-ray/imaging: No new x-rays or imaging. Progress Made With Physical, Occupational, And Speech Therapy: With physical therapy today, she ambu lated 35 feet with minimal assistance. Right hand frequently slipped off the walker. She did wheelc hair mobilization covering 45 feet with left upper extremity, moderate assistance. She did have maxi mum assistance for surface changes. With occupational therapy, toilet transfer and shower transfer do ne with contact guard to minimum assistance. Performed showering with minimum assistance to thorough ly wash buttocks and perineum area. The speech pathologist, today had long-term goals of improving m bradley strategies, to recall 5 unrelated words after 10 minutes, to increase her SLUMS score to 27 plu s. Furthermore, she verbalized understanding when the speech pathologist indicated what the goals we re. Assessment: Ms. Zheng is a 74-year-old patient with acute left thalamic stroke with right-sided lo ss of proprioception sense in the right upper extremity and face more than the lower extremity. She has decreased mobility and decreased physical functioning, hypertension, mild malnutrition, dyslipide jorge, insomnia, constipation, and fibrillation. Plan: Continue with physical, occupational, and speech therapy 3.5 hours, 5 of 7 days. She has rehana rbid medications, which are noted above and will be continued including for DVT prophylaxis and addit ional stroke risk reduction. LB/MODL Voice ID: [id number] Report ID: [id number]
[2024-11-27] MEDS: CALCIUM CARB 500MG/VIT D 200 IU TAB PO SCH (07:41)
[2024-11-27] MEDS: CRANBERRY FRUIT EXTRACT 425 MG CAPSULE PO SCH (07:41)
--- NOTE | 2024-11-27 07:55 | RAD REPORT ---
EXAM: AP view(s) of the abdomen Abdomen 1 View (KUB) HISTORY: r/o constipation COMPARISON: None FINDINGS: Nonobstructive bowel gas pattern.. Low formed stool burden. Calcifications in the right upper quadrant probably gallstones.. No acute osseous abnormality. Other: n/a IMPRESSION: Nonobstructive bowel gas pattern. Low formed stool burden.
[2024-11-27] MEDS ORDERED: ENSURE ENLIVE 237 ML CAN PO SCH (08:00)
[2024-11-27] MEDS: NA CHLORIDE 0.9% 1,000 ML IV SCH (20:29)
[2024-11-28] MEDS: LIDOCAINE 4% PATCH TOP SCH ×2 (00:30→07:11)
[2024-11-28] MEDS: SOTALOL HCL 80 MG TAB PO SCH (04:55)
[2024-11-28 06:14] LABS: Absolute Basophils 0.1 K/uL (0-0.5); Absolute Eosinophils 0.3 K/uL (0-0.5); Absolute Lymphocytes (CBC) 2.9 K/uL (0.7-4.9); Absolute Monocytes 1.1 K/uL (0.1-1.3); Absolute Neutrophil 5.4 K/uL (1.8-8.0); Basophils % 0.8 % (0-1.3); Eosinophils % 2.6 % (0-4.4); Hematocrit 43.6 % (36.0-45.0); Hemoglobin 14.8 g/dL (12.0-15.0); MCH 30.6 pg (27.0-35.0); MPV 10.9 fL (7.6-11.3); Monocytes % 11.2 % (3.3-12.3); Neutrophils % 55.4 % (41.7-73.7); Platelets 234 thou/uL (152-406); RBC Red Blood Cell Count 4.84 M/uL (3.86-4.86); Red Cell Distribution Width 14.3 % (12.1-15.2)
[2024-11-28 06:39] LABS: Albumin 2.9 g/dL (3.4-5.0); Anion Gap 11.1 mEq/L (5.0-15.0); Potassium 4.1 mEq/L (3.5-5.1); Prealbumin 15.9 mg/dL (20-40)
[2024-11-28] MEDS: MAGNESIUM OXIDE 400 MG TAB PO SCH (20:24)
[2024-11-28] MEDS: BACLOFEN 10 MG TAB PO SCH (20:25)
--- NOTE | 2024-11-28 21:54 | PN ---
Date of Progress Note: 11/28/2024 Time Of Service: 1:45 p.m. Subjective: Ms. Zheng is resting comfortably in a chair. She still has issues with the right arm being an alien limb after the left thalamic stroke. She said last night, she also had some spasmodic episodes in the right lower extremity and the right arm was moving in an unexplained fashion. Objective: Again as noted, right arm and leg have some spasms and stiffness and moving in an unusual way. Physical Examination: Vital Signs: Blood pressure is 113/86, pulse 77, respiratory rate 18, temperature 98.1, oxygen satur ation 100%. General: Ms. Zheng again is resting comfortably. Neuro: Still has significant dexterity issues in the right upper extremity. Difficulty with two-poi nt discrimination in the right upper and lower extremity. No new findings on exam however. Laboratory Studies: Complete blood count differential is completely normal. Her basic metabolic diaz el is all normal. She does have albumin slightly low at 2.5 and prealbumin at 15.9. Calcium now nor mal at 8.7. X-ray/imaging: KUB x-ray was done yesterday to rule out constipation. This study showed nonobstruct justen bowel gas pattern. A low amount of formed stool burden noted. Progress Made With Physical, Occupational, And Speech Therapy: With physical therapy, she completed gait training 50 feet x2 with minimum assistance and a rolling walker. She was up and down 6 steps 4 inches each with loss of balance on the fourth step. She mobilized a wheelchair 75 feet 3 times wit h contact guard assistance and minimum assistance for obstacle avoidance. With occupational therapy, performed toilet transfers x3 with contact guard to standby assistance. Wheelchair to regular chair transfer with aoyex-jg-szqmi transfer with standby assistance. Verbal cues required. With speech, able to recall picture details with 100% accuracy after 3-minute delay and 85% accuracy after 5-minut e delay. She is able to do organized thinking tasks and sequencing activities with 100% accuracy and independently. Assessment: Ms. Zheng is a 74-year-old patient with acute left thalamic stroke with dense right-si ded incoordination and loss of sensation with some preserved strength. She still has some difficulty with communication. She has decreased mobility, decreased mental functioning in addition to stroke risk, dyslipidemia, hypertension, insomnia, and mild malnutrition along with mild constipation. Plan: She will continue with physical, occupational, and speech therapy 3.5 hours, 5 of 7 days. She has a list of comorbid conditions which will be managed by multiple medications including sotalol, S enokot, Ensure High Protein, melatonin, continue with lidocaine swish and swallow, which she actually did mention today, there was some toothache in the left upper molar region where she says there was infection, but white blood cell count was normal. She will be given lidocaine switch and swallow for that. She will see a dentist once discharged. Otherwise, she is on Eliquis for DVT prophylaxis, Li pitor for dyslipidemia, baclofen at night for muscle spasms in the right upper and lower extremity. She has Tylenol extra-strength for pain. LB/MODL Voice ID: [id number] Report ID: [id number]
[2024-11-28] MEDS: ACETAMINOPHEN 500 MG TAB PO PRN (22:38)
--- NOTE | 2024-11-29 13:56 | P.RH.PN ---
Estimated Length of Stay: 13 Expected Discharge Date: 12/05/24 Discharge Disposition Plan: Home Family Support: Yes Prison Goal: Mobility, Transfers, Self Care Vital Signs: Last Vital Signs Temp 97.5 F 11/29/24 07:55 Pulse 89 11/29/24 07:55 Resp 17 11/29/24 07:55 BP 118/65 11/29/24 07:55 Pulse Ox 96 11/29/24 07:55 Laboratory: Laboratory Last Values WBC 9.80 thou/uL (4.3-10.9) 11/28/24 06:01 RBC 4.84 M/uL (3.86-4.86) 11/28/24 06:01 Hgb 14.8 g/dL (12.0-15.0) 11/28/24 06:01 Hct 43.6 % (36.0-45.0) 11/28/24 06:01 MCV 90.0 fL (80-100) 11/28/24 06:01 MCH 30.6 pg (27.0-35.0) 11/28/24 06:01 MCHC 34.0 g/dL (32.0-36.0) 11/28/24 06:01 RDW 14.3 % (12.1-15.2) 11/28/24 06:01 Plt Count 234 thou/uL (152-406) 11/28/24 06:01 MPV 10.9 fL (7.6-11.3) 11/28/24 06:01 Neutrophils % 55.4 % (41.7-73.7) 11/28/24 06:01 Lymphocytes % 30.0 % (15.3-44.8) 11/28/24 06:01 Monocytes % 11.2 % (3.3-12.3) 11/28/24 06:01 Eosinophils % 2.6 % (0-4.4) 11/28/24 06:01 Basophils % 0.8 % (0-1.3) 11/28/24 06:01 Absolute Neutrophils 5.4 K/uL (1.8-8.0) 11/28/24 06:01 Absolute Lymphocytes 2.9 K/uL (0.7-4.9) 11/28/24 06:01 Absolute Monocytes 1.1 K/uL (0.1-1.3) 11/28/24 06:01 Absolute Eosinophils 0.3 K/uL (0-0.5) 11/28/24 06:01 Absolute Basophils 0.1 K/uL (0-0.5) 11/28/24 06:01 Sodium 140 mEq/L (136-145) 11/28/24 06:01 Potassium 4.1 mEq/L (3.5-5.1) 11/28/24 06:01 Chloride 104 mEq/L (98-107) 11/28/24 06:01 Carbon Dioxide 29 mEq/L (21-32) 11/28/24 06:01 Anion Gap 11.1 mEq/L (5.0-15.0) 11/28/24 06:01 BUN 10 mg/dL (7-18) 11/28/24 06:01 Creatinine 0.56 mg/dL (0.55-1.02) 11/28/24 06:01 Est GFR (CKD-EPI) 96 ml/min (=/>90) 11/28/24 06:01 Glucose 95 mg/dL (74-106) 11/28/24 06:01 Calcium 8.7 mg/dL (8.5-10.1) 11/28/24 06:01 Magnesium 2.0 mg/dL (1.6-2.4) 11/28/24 06:01 Albumin 2.9 g/dL (3.4-5.0) L 11/28/24 06:01 Prealbumin 15.9 mg/dL (20-40) L 11/28/24 06:01 Urine Color Light-yellow (Yellow) 11/25/24 14:40 Urine Clarity Extremely turbid (Clear) H 11/25/24 14:40 Urine pH 6.0 (5.0-7.0) 11/25/24 14:40 Ur Specific Herminie 1.009 (1.005-1.030) 11/25/24 14:40 Glucose (UA)(Auto) Negative (Negative) 11/25/24 14:40 Urine Ketones 2+ (Negative) H 11/25/24 14:40 Urine Blood 3+ (over) (Negative) H 11/25/24 14:40 Urine Nitrite Negative (Negative) 11/25/24 14:40 Urine Bilirubin Negative (Negative) 11/25/24 14:40 Urine Urobilinogen Normal (Normal) 11/25/24 14:40 Ur Leukocyte Esterase Negative Dilshad/uL (Negative) 11/25/24 14:40 Urine RBC >50 /HPF (None Seen) H 11/25/24 14:40 Urine WBC <5 /HPF (<5) 11/25/24 14:40 Ur Squamous Epith Cells <5 /HPF (None Seen) 11/25/24 14:40 Unidentified Crystals Few /HPF (None Seen) 11/25/24 14:40 Urine Bacteria <20 /HPF (<20) 11/25/24 14:40 Urine Mucus Slight /HPF (None Seen) 11/25/24 14:40 Urine Culture Reflexed Not needed 11/25/24 14:40 Urine Total Protein Negative (Negative) 11/25/24 14:40 Weight: 184 lb 8 oz Wound Present: No Physician Update: Labs reviewed and are stable with mildly low prealbumin. Pain is controlled. 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 SLUMS 26 with MCI doing very well with speech. Met 3/5 STG bed mobility CGA, RW 90' at a time, WC 80' x 3. With OT independent with oral hygiene, CGA with lower body ADLs. Improved sensation in her right face and arm. Comment: No skin breakdown Summary: Patient's care plan and continuous churn buttermaker goals have been reviewed and revised as necessary. Please see the Rehabilitation Signature page for all necessary signatures.
[2024-11-29] MEDS: NA CHLORIDE 0.9% 1,000 ML IV SCH (16:26)
[2024-11-29] MEDS: SOTALOL HCL 80 MG TAB PO SCH (17:20)
[2024-11-29] MEDS: MEGESTROL 40 MG TAB PO SCH (20:00)
[2024-11-30] MEDS ORDERED: levoFLOXacin 500 MG TAB PO SCH (08:00)
[2024-12-02] MEDS: LIDOCAINE VISCOUS 2% SOLN 15 ML UDC PO PRN (22:23)
--- NOTE | 2024-12-03 02:11 | PN ---
Date of Progress Note: 12/02/2024 Time Of Service: 1:50 p.m. Subjective: Ms. Zheng is in her bed in between therapy sessions. She said there is much less epis odes of the right hand alien limb syndrome and less spasms in the right arm and leg. She is feeling much better overall in therapy today. Objective: No fevers, chills, nausea, vomiting. No significant myalgias or arthralgias, although al ien limb syndrome not reported. Physical Examination: Vital Signs: Blood pressure 144/67, pulse 56, respiratory rate 18, temperature 97.9, oxygen saturati on 94%. General: Ms. Zheng again is resting comfortably. Neuromuscular: Still has incoordination and some difficulty with fine motor movement in the right up per extremity and more so in the right lower extremity. Otherwise, no new deficits. Laboratory Studies: No new laboratory studies. X-ray/imaging: No new x-rays or imaging. Medications: Have been reviewed and are unchanged. Progress Made With Physical, Occupational, And Speech Therapy: With physical therapy today, she did wgmgqc-[id number]-ump transfers independently, multiple zgu-tu-gsrvt transfers done independently, multiple s hsuo-pm-unzxy transfers also done independently. With a rolling walker, she ambulated to 150 feet wi th contact guard assistance. Mobilized a wheelchair 250 feet independently. With her occupational t herapy, performed toilet transfers and wheelchair to tub transfers independently. Worked at the sink , taking care of her oral and facial hygiene and did so very well. Donned and doffed her footwear in dependently. She is doing very well with her therapy. With speech, she recalled 90% of details on a picture presented after 10 minutes. She organized her thinking skills with 100% accuracy. Assessment: Ms. Zheng is a 74-year-old patient with left thalamic stroke with some incoordination and sensory loss along with dexterity difficulties in her right upper and lower extremities. She is making good progress overall. She still has decreased mobility, decreased physical functioning, dysl ipidemia, the alien limb syndrome has improved, constipation, insomnia, mild malnutrition. Plan: She will continue with physical, occupational, and speech therapy 3.5 hours, 5 of 7 days. She will continue with the list of medications, which had been noted. The plan for her is to be dischar [facility] and continue therapy via Home Health since she is making good progress overall. YELITZA/BLAKE Voice ID: [id number] Report ID: [id number]
--- NOTE | 2024-12-04 22:22 | PN ---
Date of Progress Note: 12/04/2024 Time Of Service: 1:25 p.m. Subjective: Ms. Zheng is doing very well. Speech pathologist at bedside. She said today she was able to lift her right arm above her head and she could tell where the hand is and of course deficit is a thalamic stroke on the left producing dense loss of sensation on the right upper more than lower extremity and face. She still has preserved strength. Objective: No fevers, chills, nausea, vomiting. No myalgias, arthralgias. She denies any worsening alien limb syndrome with the right arm. Physical Examination: Vital Signs: Blood pressure 104/70, pulse 58, respiratory rate 17, temperature 98.2, oxygen saturati on 96%. Weight 184 pounds, height 5 feet 4 inches, BMI 31.7. General: Again, Ms. Zheng is resting comfortably. She is happy so far with her therapy and some i mprovement in her dexterity, coordination, and fine finger movements with right upper extremity. Laboratory Studies: Complete blood count with differential done on the few weeks ago completely normal, also on the completely normal. Basic metabolic panel essentially all unremarkable exce pt low prealbumin of 15.9 and albumin 2.9, otherwise all normal. No new x-rays or imaging. Medications: Have been reviewed and are unchanged. Progress Made With Physical, Occupational, And Speech Therapy: With physical therapy today, she perf ormed multiple seated lower extremity exercises 30 repetitions. She did wzr-bx-[id number] transfers indep endently, perform multiple xmuas-jf-raaza transfers independently. She ambulated 100 feet, 175 feet, and 250 feet with standby assistance. Emphasis placed on upright posture. She ascended and descend ed 9 steps and 3 steps. Both handrails were used with standby assistance. With occupational therapy , toilet transfers by walking from bed toilet x2 was independent. She was able to do functional ambu lation around the kitchen area with a rolling walker and she performed a duck pearce activity well. Sh e plans for a shower in the morning. With speech, independently recalled 2 sets of 4 of 4 unrelated items after 3 minutes and 5 minutes. She was able to do sequencing activity with 100% accuracy. Org anizational thinking tasks done with 100% accuracy. Assessment: Ms. Zheng is a 74-year-old patient in rehabilitation unit with acute left thalamic inf arct with right-sided sensory loss. She is doing excellent with physical, occupational, and speech t herapy. She has decreased mobility, decreased physical functioning, dyslipidemia, and low calcium le concepcion, constipation, hypertension, risk of deep vein thrombosis. Plan: 1. Continue with physical, occupational, and speech therapy 3.5 hours, 5 of 7 days. 2. Continue with baclofen for muscle spasm, Lipitor for dyslipidemia, Eliquis for stroke risk reducti on, Tylenol for pain, lidocaine patch also for pain, milk of magnesia for muscle spasms, melatonin fo r insomnia, Ensure Enlive for malnutrition, Senokot for constipation, sotalol for heart rate control. She will continue with physical, occupational, and speech therapy 3.5 hours, 5 of 7 days as noted. YELITZA/LIZZYL Voice ID: [id number] Report ID: [id number]
[2024-12-05 06:22] LABS: Absolute Basophils 0.1 K/uL (0-0.5); Absolute Eosinophils 0.2 K/uL (0-0.5); Absolute Monocytes 0.7 K/uL (0.1-1.3); Absolute Neutrophil 4.1 K/uL (1.8-8.0); Basophils % 1.1 % (0-1.3); Eosinophils % 3.1 % (0-4.4); Hematocrit 42.7 % (36.0-45.0); Hemoglobin 14.1 g/dL (12.0-15.0); Lymphocytes % 28.6 % (15.3-44.8); MCH 29.9 pg (27.0-35.0); MCHC 32.9 g/dL (32.0-36.0); MCV 90.7 fL (80-100); MPV 11.1 fL (7.6-11.3); Monocytes % 9.5 % (3.3-12.3); Neutrophils % 57.7 % (41.7-73.7); Nucleated Red Blood Cells % 0.1 % (0-0); Platelets 246 thou/uL (152-406); RBC Red Blood Cell Count 4.71 M/uL (3.86-4.86); Red Cell Distribution Width 14.4 % (12.1-15.2)
[2024-12-05 06:44] LABS: Albumin 3.1 g/dL (3.4-5.0); Anion Gap 9.2 mEq/L (5.0-15.0); Magnesium 2.4 mg/dL (1.6-2.4); Potassium 4.2 mEq/L (3.5-5.1); Prealbumin 22.9 mg/dL (20-40)
--- NOTE | 2024-12-05 23:02 | PN ---
Date of Progress Note: 12/05/2024 Time Of Service: 1:35 p.m. Subjective: Ms. Zheng is doing better and beginning to have better dexterity in the right upper ex tremity. Positioning was improved. She is able to now tell long clearly where the right hand is as she moves the hand around. She has no new complaints. Objective: No fevers, chills, nausea, vomiting. No significant myalgias, arthralgias, rash, or othe r complaints. Physical Examination: Vital Signs: Blood pressure is 135/63, pulse 65, respiratory rate 18, temperature 97.8, oxygen satur ation 94%. General: Again, Ms. Zheng is lying in bed. She is able to move the arm around. Still has some di fficulty reaching objects if her eyes are closed when she tries to reach with the right hand, but she is still making some improvement in that arena. Laboratory Studies: Complete blood count with differential is completely normal, 3 sets in a row. B asic metabolic panel all normal except slightly low albumin of 3.1, normal chloride, potassium, BUN, and creatinine, calcium, magnesium, all normal, prealbumin 22.5. Medications: Have been reviewed and are unchanged. Progress Made With Physical, Occupational, And Speech Therapy: With physical therapy today, she ambu lated 175 feet and 250 feet independently, up and down 12 steps independently with bilateral handrail s, mobilized a wheelchair 250 feet independently. Oxv-ie-hnmwk transfers on occupational therapy don e independently, did very well with toileting, hygiene, bathing, upper and lower body dressing, donni ng and doffing footwear all independent and she is ready for discharge home actually in the morning. Durable medical equipment needs will be met. With her speech, she scored 15 on the BIMS and improve d the SLUMS from 26 to 30 indicating no significant cognitive impairment. Assessment: Ms. Zheng is a 74-year-old patient with acute left thalamic infarct with significant l oss of sensory perception in the right upper extremity. She is improving very well and she is ready for discharge, but should continue therapy at home. She does have still mild decreased mobility, dec reased physical functioning, and risk of stroke from atrial fibrillation, she is on Eliquis, she has Lipitor for dyslipidemia, baclofen for muscle spasms which have improved, diltiazem for heart rate co ntrol, she is on melatonin for insomnia, Ensure Enlive for poor nutrition, sotalol for heart rate con trol, Senokot for constipation. Plan: Until discharge, continue with physical, occupational, and speech therapy. She will also cont inue with her comorbid condition medications which have been noted. After discharge, she will contin ue therapy via Home Health and will follow up with her neurologist and primary care physician as sche duled. YELITZA/BLAKE Voice ID: [id number] Report ID: [id number]
[2024-12-06 07:37] VITALS: BP 126/70
[2024-12-06 09:32] VITALS: TEMP 97.7
== END 2024-12-06 10:20 | disposition home health service (06) | DRG 57 ==
LOC: 5TH 11-25 13:09
PROVIDERS: ADMIT Psychiatry & Neurology Neurology with Special Qualifications in Child Neurology; ATTEND Psychiatry & Neurology Neurology with Special Qualifications in Child Neurology
DX: I69.351 Hemiplegia and hemiparesis following cerebral infarction affecting right dominant side (principal); R41.4 Neurologic neglect syndrome; E44.1 Mild protein-calorie malnutrition; I69.322 Dysarthria following cerebral infarction; I69.391 Dysphagia following cerebral infarction; R13.10 Dysphagia, unspecified; I69.398 Other sequelae of cerebral infarction; R27.8 Other lack of coordination; M62.838 Other muscle spasm; R44.9 Unspecified symptoms and signs involving general sensations and perceptions; M19.041 Primary osteoarthritis, right hand; I48.91 Unspecified atrial fibrillation; I10 Essential (primary) hypertension; G47.00 Insomnia, unspecified; E78.5 Hyperlipidemia, unspecified; K59.00 Constipation, unspecified; E83.51 Hypocalcemia; Z68.31 Body mass index [BMI] 31.0-31.9, adult
CPT/HCPCS: 36415; 74018; 80048; 81001; 82040; 83735; 84134; 85025; 92523; 97110; 97112; 97116; 97129; 97163; 97165; 97530; 97542; J2003; J7030

== ENCOUNTER 2025-03-03 10:28 | Emergency (ER) | payer OTHER ==
[2025-03-03] MEDS ORDERED: MORPHINE 4 MG/ML SYR ONE (10:53)
[2025-03-03] MEDS ORDERED: ONDANSETRON 4 MG/2 ML VIAL ONE (10:53)
[2025-03-03] MEDS ORDERED: NA CHLORIDE 0.9% 1,000 ML ONE (10:54)
[2025-03-03 11:39] LABS: Sqamous Epithelial <5 /HPF (None Seen); Urine Crystals Unidentified Few /HPF (None Seen); Urine Culture Reflex Order NOT NEEDED; Urine Microscopic Reflex YN ORDER UMIC; Urine WBC Clump Rare /HPF (None Seen)
[2025-03-03 11:40] LABS: Absolute Lymphocytes (CBC) 1.5 K/uL (0.7-4.9); Hematocrit 40.3 % (36.0-45.0); Hemoglobin 13.3 g/dL (12.0-15.0); MCH 31.2 pg (27.0-35.0); MCHC 32.9 g/dL (32.0-36.0); MCV 94.8 fL (80-100); MPV 11.2 fL (7.6-11.3); Nucleated RBC Absolute Count 0.0 (0-0); Nucleated Red Blood Cells % 0.0 % (0-0); RBC Red Blood Cell Count 4.25 M/uL (3.86-4.86); White Blood Count 12.50 thou/uL (4.3-10.9)
[2025-03-03 11:58] LABS: ALT/SGPT 18.0 U/L (13-56); AST/SGOT 12.0 U/L (15-37); Albumin 3.2 g/dL (3.4-5.0); Albumin/Globulin Ratio 0.9 (1.1-1.8); Alkaline Phosphatase 72.0 U/L (45-117); Anion Gap 10.9 mEq/L (5.0-15.0); BUN Blood Urea Nitrogen 15.0 mg/dL (7-18); Globulin 3.4 g/dL (2.3-3.5); Glucose Level 94.0 mg/dL (74-106); Lipase 16.0 U/L (13-75); Potassium 3.9 mEq/L (3.5-5.1)
--- NOTE | 2025-03-03 12:30 | RAD REPORT ---
EXAMINATION: Abdomen Pelvis W Contrast CLINICAL INDICATION: Female, 74 years old.ABD PAIN TECHNIQUE: CT abdomen and pelvis was performed, after the administration of IV contrast, as per [facility]. Axial, sagittal and coronal reconstructions were obtained. One or more of the following dose reduction techniques were used: Automated exposure control, adjustment of the mA and/o r kV according to patient size, and/or iterative reconstruction. Unless otherwise specified, incidental findings do not require dedicated imaging follow-up. [id number]. COMPARISON: No prior exams FINDINGS: LOWER CHEST: Linear scarring at the left lung base.No significant pericardial effusion. UPPER GI: No significant abnormality. LIVER: Benign appearing low density liver lesions. No suspicious mass. GALLBLADDER/BILE DUCTS: Cholelithiasis without CT evidence of acute cholecystitis.? PANCREAS: No mass, ductal dilation, or carola-pancreatic fluid. SPLEEN: Unremarkable. ADRENALS: No adrenal masses. KIDNEYS AND URETERS: Moderate left-sided hydroureteronephrosis secondary to either one 5 mm stone reinier rupali two adjacent stones in the left distal ureter. Mild right-sided hydronephrosis but without obstructing stone. This could be as result of mass effect from the right adnexal dermoid..No suspicio us renal mass. ABDOMINAL AORTA AND OTHER VESSELS: Mild atherosclerotic changes. PERITONEUM: Nonspecific free fluid. LYMPH NODES: No pathologic lymphadenopathy. ABDOMINAL WALL: Unremarkable SMALL BOWEL/COLON: Small bowel has normal course and caliber. No colonic wall thickening or pericolon ic inflammatory changes. URINARY BLADDER: Underdistended but grossly unremarkable. REPRODUCTIVE ORGANS: Fat and calcium containing right adnexal mass consistent with a 7 cm right ovari an dermoid. MUSCULOSKELETAL: Grade 1 anterolisthesis of L4 and L5. No acute fracture ADDITIONAL FINDINGS: None. IMPRESSION: Moderate left-sided hydroureteronephrosis secondary to an obstructing stone versus stones at the left UVJ measuring 5 mm in aggregate. 7 cm right ovarian dermoid. Mild right-sided hydroureteronephrosis is noted without obstructing stone . The hydronephrosis could be due to mass effect of the dermoid on the distal right ureter.
--- NOTE | 2025-03-03 12:50 | EDPHYS ---
Physician Documentation [facility] Name: Marlen Zheng Age: 74 yrs Sex: Female : 1950 Arrival Date: 03/03/2025 Time: 10:28 Bed 7 Private MD: ED Physician Kwadwo Lopez HPI: 03/03 10:44 This 74 yrs old Female presents to ER via Wheelchair with complaints of Flank dr5 Pain, Back Pain. 10:44 The patient complains of pain in the left low back. Onset: The symptoms/episode dr5 began/occurred 2 day(s) ago. Patient is a 71-year-old female with history of A-fib, hypertension, CVA in November of 2024 coming in with left-sided flank pain and abdominal pain that started 2 days ago. Patient reports that she thinks she may have a bowel obstruction but was passing gas yesterday and today. Patient reports intermittent abdominal pain that is relieved with Tylenol.. Historical: - Allergies: 10:39 No Known Allergies; iw - PMHx: 10:39 Atrial fibrillation; Hypertensive disorder; Vertigo; Cerebrovascular accident; iw - Immunization history:: Adult Immunizations up to date. - Infectious Disease History:: Denies. - Social history:: Smoking status: Patient denies any tobacco usage or history of. ROS: 10:46 Constitutional: as per hpi dr5 Exam: 10:46 Constitutional: This is a well developed, well nourished patient who is awake, alert, dr5 and in no acute distress. Head/Face: Normocephalic, atraumatic. Eyes: Pupils equal round and reactive to light, extra-ocular motions intact. Lids and lashes normal. Conjunctiva and sclera are non-icteric and not injected. Cornea within normal limits. Periorbital areas with no swelling, redness, or edema. Neck: Trachea midline, no thyromegaly or masses palpated, and no cervical lymphadenopathy. Supple, full range of motion without nuchal rigidity, or vertebral point tenderness. No Meningismus. Chest/axilla: Normal chest wall appearance and motion. Nontender with no deformity. No lesions are appreciated. Cardiovascular: Regular rate and rhythm with a normal S1 and S2. Normal PMI, no JVD. No pulse deficits. Respiratory: Lungs have equal breath sounds bilaterally, clear to auscultation. No rales, rhonchi or wheezes noted. No increased work of breathing, no retractions or nasal flaring. Back: No spinal tenderness. No costovertebral tenderness. Full range of motion. Skin: Warm, dry with normal turgor. Normal color with no rashes, no lesions, and no evidence of cellulitis. MS/ Extremity: Pulses equal, no cyanosis. Neurovascular intact. Full, normal range of motion. Neuro: Awake and alert, GCS 15, oriented to person, place, time, and situation. Cranial nerves II-XII grossly intact. Motor strength 5/5 in all extremities. Sensory grossly intact. Cerebellar exam normal. Normal gait. Vital Signs: 10:39 BP 126 / 85; Pulse 73; Resp 18; Pulse Ox 98% on R/A; iw 12:06 BP 133 / 83; Pulse 70; Resp 15; Pulse Ox 99% ; hb MDM: 10:33 Medical Screening Exam initiated dr5 13:59 Differential diagnosis: nephrolithiasis, pyelonephritis, UTI, diverticulitis. Data dr5 reviewed: vital signs, nurses notes, lab test result(s), amylase and lipase, CBC, white blood cell count, hemoglobin, hematocrit, platelets, electrolytes, sodium, potassium, chloride, serum bicarbonate, BUN, creatinine, serum glucose, urinalysis, radiologic studies, CT scan. Consideration of Admission/Observation Escalation of care including admission/observation considered. Patient considering patient was not feeling better and had a large kidney stone that would not pass.. I considered the following discharge prescriptions or medication management in the emergency department I discussed and recommended Over The Counter medications, Medications were administered in the Emergency Department. See MAR. Historians other than the Patient: Friend: Friend at bedside. Care significantly affected by the following chronic conditions: Hypertension, A-fib, CVA. Care significantly affected by the following Social Determinants of Health: Poor access to healthcare and/or lack of insurance, Poor access to transportation, Problems related to employment. Counseling: I had a detailed discussion with the patient and/or guardian regarding the historical points, exam findings, and any diagnostic results supporting the discharge/admit diagnosis, the presence of at least one elevated blood pressure reading (>120/80) during this emergency department visit, lab results, radiology results, the need for outpatient follow up, for definitive care, a family practitioner, a urologist, to return to the emergency department if symptoms worsen or persist or if there are any questions or concerns that arise at home. Medication response: morphine relieved the patient's pain. Symptoms have resolved, Zofran relieved the patient's nausea. Response to treatment: the patient's symptoms have resolved after treatment, the patient's condition has returned to base line, the patient is now symptom free. Special discussion: Based on the patient's Hx, exam, and Dx evaluation, there is no indication for emergent surgery or inpatient Tx. It is understood by the patient/guardian that if the Sx's persist or worsen they need to return immediately for re-evaluation. I have referred the patient to see his PCP for further evaluation of high blood pressure. I discussed with the patient/guardian in detail that at this point there is no indication for admission to the hospital. It is understood, however, that if the symptoms persist or worsen the patient needs to return immediately for re-evaluation. Based on the history and exam findings, there is no indication for further emergent testing or inpatient evaluation. I discussed with the patient/guardian the need to see the urologist for further evaluation of the symptoms. ED course: CT scan and blood work printed and given to patient. Recommended patient follow-up with Dr. Kamara for further management of kidney stones. Patient denies symptoms and reports that she had a small amount of urination which has resolved and peeing a lot now which could possibly be a kidney stone that passed. I gave patient a strainer to urinate through to catch kidney stone. Also gave patient antibiotics, Toradol, and Flomax to help with pain and passing stone.. ED course: Patient is agreeable to plan. Patient will make appoint with Dr. Kamara today. All questions answered. Strict ER precautions given.. 03/03 10:42 Order name: CBC with Diff; Complete Time: 11:42 03/03 10:42 Order name: CMP; Complete Time: 12:00 03/03 10:42 Order name: Lipase; Complete Time: 12:00 03/03 10:42 Order name: UA Rfx Chago Cult if indicated; Complete Time: 11:39 03/03 10:42 Order name: CT Abd/Pelvis - IV Contrast Only; Complete Time: 12:32 03/03 10:42 Order name: IV Saline Lock; Complete Time: 11:07 03/03 10:42 Order name: Labs collected and sent; Complete Time: 11:07 dr5 Administered Medications: 11:07 Drug: NS 0.9% IV 1000 ml IV at 1 bolus Per protocol; to be given as a bolus over 60 bp minutes Route: IV; Rate: 1 bolus; Site: right forearm; 13:18 Follow up: IV Status: Completed infusion bp 11:08 Drug: Ondansetron IVP 4 mg IVP once; over 2 minutes Route: IVP; Site: right forearm; bp 13:18 Follow up: Response: No adverse reaction bp 11:08 Drug: morphine IVP or IV 4 mg IVP once over 4 mins Route: IVP; Infused Over: 4 mins; bp Site: right forearm; 13:18 Follow up: Response: No adverse reaction bp Disposition: 19:59 I was immediately available on-site in the Emergency Department for consultation in the ms3 care of the patient. Disposition Summary: 03/03/25 12:49 Discharge Ordered Notes: Location: Home dr5 Condition: Stable dr5 Diagnosis - Kidney Stone/ Calculus in urethra dr5 Followup: dr5 - With: Emergency Department - When: As needed - Reason: Worsening of condition Followup: dr5 - With: Edmond Kamara MD - When: 1 - 2 days - Reason: Recheck today's complaints, Continuance of care, Re-evaluation by your physician Discharge Instructions: - Discharge Summary Sheet dr5 - Kidney Stones dr5 - Dietary Guidelines to Help Prevent Kidney Stones dr5 Forms: - Medication Reconciliation Form dr5 - Antibiotic Education dr5 - Prescription Opioid Use dr5 - Patient Portal Instructions dr5 - Leadership Thank You Letter dr5 Prescriptions: - Flomax 0.4 mg Oral capsule - take 1 capsule ORAL route daily; 20 capsule; Refills: 0, Product Selection dr5 Permitted - ketorolac 10 mg Oral tablet - take 1 tablet ORAL route every 6 hours as needed for pain; maximum total dr5 duration of 5 days from all oral, intranasal, or parenteral formulations; 20 tablet; Refills: 0, Product Selection Permitted - Cephalexin 500 mg Oral Capsule - take 1 capsule ORAL route every 12 hours for 10 days; 20 capsule; Refills: 0, dr5 Product Selection Permitted Signatures: Dispatcher [employer] Ketty Fry RN RN iw Lawson Lara RN RN bp Kwadwo Lopez DO DO ms3 Blake Whatley FNP-C FLY FISHING GUIDE-Cdr5
--- NOTE | 2025-03-03 12:50 | ER ---
Nurse's Notes [facility] Name: Marlen Zheng Age: 74 yrs Sex: Female : 1950 Arrival Date: 03/03/2025 Time: 10:28 Bed 7 Private MD: Diagnosis: Kidney Stone/ Calculus in urethra Presentation: 03/03 10:38 Chief complaint: Patient states: felt like she was constipated, not eating or drinking iw normally, took Colace last night. Coronavirus screen: At this time, the client does not indicate any symptoms associated with coronavirus-19. Ebola Screen: No symptoms or risks identified at this time. Initial Sepsis Screen: Does the patient meet any 2 criteria? No. Patient's initial sepsis screen is negative. Does the patient have a suspected source of infection? No. Patient's initial sepsis screen is negative. Risk Assessment: Do you want to hurt yourself or someone else? Patient reports no desire to harm self or others. Onset of symptoms was March 02, 2025. 10:38 Method Of Arrival: Wheelchair iw 10:38 Acuity: TRICIA 3 iw Triage Assessment: 10:45 General: Appears in no apparent distress. obese, Behavior is cooperative, appropriate bp for age, anxious. Pain: Complains of pain in left low back. EENT: No deficits noted. Neuro: No deficits noted. Cardiovascular: No deficits noted. Respiratory: No deficits noted. GI: No signs and/or symptoms were reported involving the gastrointestinal system. : No signs and/or symptoms were reported regarding the genitourinary system. Derm: No deficits noted. Musculoskeletal: Circulation, motion, and sensation intact. Range of motion: intact in all extremities. Historical: - Allergies: 10:39 No Known Allergies; iw - PMHx: 10:39 Atrial fibrillation; Hypertensive disorder; Vertigo; Cerebrovascular accident; iw - Immunization history:: Adult Immunizations up to date. - Infectious Disease History:: Denies. - Social history:: Smoking status: Patient denies any tobacco usage or history of. Screenin:43 [facility] ED Fall Risk Assessment (Adult) History of falling in the last 3 months, hb including since admission No falls in past 3 months (0 pts) Confusion or Disorientation No (0 pts) Intoxicated or Sedated No (0 pts) Impaired Gait Yes (1 pt) Mobility Assist Device Used Yes (1 pt) Altered Elimination Yes (1 pt) Score/Fall Risk Level 3 or more points = High Risk Oriented to surroundings, Maintained a safe environment, Educated pt \T\ family on fall prevention, incl call for assistance when getting out of bed. Abuse screen: Denies threats or abuse. Denies injuries from another. Nutritional screening: No deficits noted. Tuberculosis screening: No symptoms or risk factors identified. Assessment: 12:06 Reassessment: Patient appears in no apparent distress at this time. Patient and/or hb family updated on plan of care and expected duration. Pain level reassessed. Patient is alert, oriented x 3, equal unlabored respirations, skin warm/dry/pink. 13:16 Reassessment: Patient appears in no apparent distress at this time. Patient is alert, bp oriented x 3, equal unlabored respirations, skin warm/dry/pink. Neuro: Level of Consciousness is awake, alert, obeys commands, Oriented to Appropriate for age. Vital Signs: 10:39 BP 126 / 85; Pulse 73; Resp 18; Pulse Ox 98% on R/A; iw 12:06 BP 133 / 83; Pulse 70; Resp 15; Pulse Ox 99% ; hb ED Course: 10:32 Patient arrived in ED. mr 10:33 Blake Whatley FNP-C is PHCP. dr5 10:33 Kwadwo Lopez DO is Attending Physician. dr5 10:39 Triage completed. iw 10:44 Arm band placed on right wrist. hb 10:58 Lawson Lara, RN is Primary Nurse. bp 11:08 Initial lab(s) drawn, by de, sent to lab. Urine collected: clean catch specimen, clear. bp Inserted saline lock: 20 gauge in right forearm, using aseptic technique. Blood collected. Flushed with 10 mL NS. 12:14 CT Abd/Pelvis - IV Contrast Only In Process Unspecified. EDMS 12:49 Edmond Kamara MD is Referral Physician. dr5 13:16 Patient has correct armband on for positive identification. bp 13:16 No provider procedures requiring assistance completed. IV discontinued, intact, bp bleeding controlled, No redness/swelling at site. Pressure dressing applied. Administered Medications: 11:07 Drug: NS 0.9% IV 1000 ml IV at 1 bolus Per protocol; to be given as a bolus over 60 bp minutes Route: IV; Rate: 1 bolus; Site: right forearm; 13:18 Follow up: IV Status: Completed infusion bp 11:08 Drug: Ondansetron IVP 4 mg IVP once; over 2 minutes Route: IVP; Site: right forearm; bp 13:18 Follow up: Response: No adverse reaction bp 11:08 Drug: morphine IVP or IV 4 mg IVP once over 4 mins Route: IVP; Infused Over: 4 mins; bp Site: right forearm; 13:18 Follow up: Response: No adverse reaction bp Medication: 13:16 VIS not applicable for this client. bp Outcome: 12:49 Discharge ordered by MD. dr5 13:16 Discharged to home via wheelchair, with family, bp 13:16 Condition: stable 13:16 Discharge instructions given to patient, Instructed on discharge instructions, follow up and referral plans. medication usage, Demonstrated understanding of instructions, follow-up care, medications, Prescriptions given X 3, 13:18 Patient left the ED. bp Signatures: Dispatcher [employer] [facility] Maria Eugenia Polanco, Reg Reg mr Ketty Vivas, ZOHRA RN Ashley Gaytan, Lawson Perkins RN, RN RN bp Blake Whatley, FICTION AND NONFICTION PROSE WRITER-C FICTION AND NONFICTION PROSE WRITER-Cdr5
[2025-03-03 17:17] VITALS: BP 133/83; O2SAT 99
== END 2025-03-03 13:18 | disposition home or self-care (01) ==
LOC: ER 10:28
DX: N20.0 Calculus of kidney (principal); N21.1 Calculus in urethra
CPT/HCPCS: 96361; 85025; 81001; 36415; 83690; 80053; 74177; 96375; 96374; 99284; Q9967; J2405; J7030